=== PATIENT | female | born 1960 | race Caucasian/White ===

== ENCOUNTER → 2020-04-25 08:20 | Outpatient (CLI) | payer OTHER, SELFPAY ==
[2020-04-26 23:12] LABS: COVID19 Sendout Not Detected (Not Detect)
== END ==
PROVIDERS: Family Provider Nurse Practitioner Family; PCP Nurse Practitioner Family; Visit Provider Physician Assistant
DX: Z11.59 Encounter for screening for other viral diseases (principal)
CPT/HCPCS: 87635

== ENCOUNTER 2020-04-28 11:16 | Day surgery (SDC) | payer OTHER, SELFPAY ==
[2020-04-24 10:46] VITALS: BMI 55.8
[2020-04-28] VITALS (8 sets, daily range): BP systolic 143–182; BP diastolic 85–110; PULSE 85–104; RESP 12–24; TEMP 36–37.3; O2SAT 95–97; BMI 55.7
[2020-04-28] MEDS: LACTATED RINGERS 1,000 ML 100 ML IV (11:59)
--- NOTE | 2020-04-28 14:20 | PM.PREOP ---
Pre-operative Note COVID-19 COVID-19 status: Negative Result date/Date tested (Pos, Neg/Pending): 04/26/20 Interval Note History & Physical reviewed/Exam performed by Physician: Yes Changes to H&P: No
--- NOTE | 2020-04-28 14:29 | SUR.OPER ---
Supine on padded OR bed, head on pillow, arms padded and tucked at side, legs uncrossed, safety belt at thigh, tape over blanket over lower legs .
[2020-04-28] MEDS: CLINDAMYCIN 300 MG in DEXTROSE 5 % IN WATER 50 ML 104 ML IV (14:36)
[2020-04-28] MEDS: LIDOCAINE 1% 30 ML INJ (14:55)
--- NOTE | 2020-04-28 15:32 | P.OP_ITS ---
Operative Date/Time/Diagnoses Date of procedure: 04/28/20 Time of procedure: 15:32 Pre-op diagnosis: Bilateral headaches Post-op diagnosis: same Procedure & Clinicians Procedure: Examination under anesthesia. Attempted bilateral temporal artery biopsy. Abandoned when the artery could not be located either palpably or with Doppler. Same procedure as scheduled: No (Unable to complete the operation planned.) Indications: Headaches. Patient has been taking high-dose steroids. Surgeon: Vinicio Tucker Click Yes if Unassisted: Yes Anesthesia Type: General Operative Notes Findings: Unable to locate the arteries either palpably or with a Doppler despite raising the blood pressure to facilitate finding. See details below. Closure Type: not applicable Specimen(s): none sent Prosthetic devices, grafts, tissues, transplants, or devices: None Estimated Blood Loss (mL): 0 Procedure in detail: Patient was placed supine on the operating room table and underwent general LMA anesthesia. She was prepped on the right side after cl ipping some hair and draped. Could not palpate the artery but I obtained a Doppler and carefully examined for it we raised the patient's blood pressure in order to facilitate finding it and even at a pressure systolic of 150 I could not locate an arterial signal. I could not locate any signal actually. We switched probes to see if that was the problem and again could not hear anything. We tested it on someone after prepping there arm and it was clear that the probe was working and produced an audible arterial signal. I once again searched the right side and I was unable to find any arterial signal anywhere in the area of the temporal artery. The procedure was abandoned of this side. I prepped the left side and in a similar fashion examined for the artery. This time I found an arterial pulse but was actually too low to be the temporal artery. It was 8 point location of an arterial signal in it had no signal leading away from it. It was located down you the attachments of the e ar. After searching in vein on this left side for considerable. I abandoned the procedure. The patient was awakened extubated taken recovery room in good condition. Complications: none Post-operative Condition: stable Disposition: PACU Plan for aftercare: No follow-up planned
--- NOTE | 2020-04-28 15:40 | SUR.PHASEI ---
assumed care. Pt sleeping. BP elevated, close to her admission baseline. Inital CUTTER OPERATOR reports that patient will need to follow up with PCP.
--- NOTE | 2020-04-28 15:52 | SUR.PHASEI ---
HOB elevated, drinking water. will come speak to her regarding outcome. Denies nausea.
--- NOTE | 2020-04-28 16:12 | SUR.PHASEII ---
Informed MD that pt has a headache and he ordered her some oxycodone.
[2020-04-28] MEDS: OXYCODONE IR 5 MG TABLET 10 MG PO (16:16)
--- NOTE | 2020-04-28 16:26 | SUR.PHASEII ---
pt's surgery was cancelled . Dr. Oleary came and talked to pt and to pt's . Pt states her headache is better.
== END 2020-04-28 16:34 | disposition home or self-care (01) ==
PROVIDERS: Family Provider Nurse Practitioner Family; Referring Provider Specialist; Visit Provider Specialist
PROC: (CPT 37609; principal; 2020-04-28 12:45)
DX: R51 Headache (principal); J45.909 Unspecified asthma, uncomplicated; Z53.09 Procedure and treatment not carried out because of other contraindication
CPT/HCPCS: 37609; J1100; J2250; J2405; J2704; J3010; S0077

== ENCOUNTER 2020-07-10 16:27 | Observation (INO) | payer OTHER, SELFPAY ==
[2020-07-10] VITALS (13 sets, daily range): BP systolic 126–194; BP diastolic 53–99; PULSE 79–95; RESP 13–24; TEMP 36.1–36.7; O2SAT 94–99; BMI 56.5
--- NOTE | 2020-07-10 16:30 | PC.NURSE ---
at time of triage attempt to get EKG on patient in hallway due to no bed available in department. Pt states she is supposed to have one later and does not want one at this time. I told patient we should get one due to her complaint of shortness of breath with pain upon inspiration. Pt refuses EKG at this time and states she will wait for a room. Charge Nurse notified.
--- NOTE | 2020-07-10 17:36 | DI.RAD.S_ITS ---
PROCEDURE: XR CHEST 1V INDICATIONS: Shortness of breath TECHNIQUE: One view of the chest was acquired. COMPARISON: None. FINDINGS: Surgical changes and devices: None. Lungs and pleura: There is pulmonary vascular prominence suggestive of mild edema. No focal consolidation. No pleural effusions or pneumothorax. Mediastinum: Mediastinal contours appear normal. Heart size is normal. Bones and chest wall: No suspicious bony lesions. Overlying soft tissues appear unremarkable. IMPRESSION: 1. Pulmonary vascular prominence suggestive of mild edema. Dictated by: Dutch Patterson M.D. on 07/10/2020 at 17:21 Approved by: Dutch Patterson M.D. on 07/10/2020 at 17:23
--- NOTE | 2020-07-10 18:47 | ED_ITS ---
HPI - Chest Pain General Chief Complaint: Shortness of Breath/Dyspnea Stated Complaint: SOB, cough Time Seen by Provider: 07/10/20 17:35 Source: patient Mode of arrival: Ambulatory Limitations: no limitations History of Present Illness HPI narrative: Patient complains ongoing exertional chest pain dyspnea for the past 3 weeks. Not improving with multiple courses of steroids. Has exertional chest pressure. Very dyspneic on short walks. Has been gaining weight as well. Strong family history coronary disease. Does not smoke. History of hypercholesteremia. Never had a stress test before was referred by [facility] provider for Holter monitor tomorrow. 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 Feels like a brick on her chest when chest tightness occurs. No chest pain at this time. Related Data Home Medications Medication Instructions Recorded Confirmed albuterol sulfate 90 mcg/actuation 2 puff INHALATION Q6H PRN 04/23/20 07/10/20 aerosol inhaler diphenhydramine HCl 25 mg capsule 75 mg PO BEDTIME 04/23/20 07/10/20 mirtazapine 15 mg tablet 30 mg PO DAILY 04/23/20 07/10/20 omeprazole 20 mg capsule,delayed 40 mg PO DAILY 04/23/20 07/10/20 release gabapentin 200 mg PO TID 07/10/20 07/10/20 levothyroxine 200 mcg PO DAILY 07/10/20 07/10/20 Allergies Allergy/AdvReac Type Severity Reaction Status Date / Time acetaminophen [ACETAMINOPHEN] Allergy Intermediate RASH Verified 07/10/20 16:35 nitrofurantoin Allergy Intermediate RASH Verified 07/10/20 16:35 [From MACROBID] Penicillins [PENICILLINS] Allergy Intermediate RASH Verified 07/10/20 16:35 phenylpropanolamine Allergy Intermediate RASH/STOMACH Verified 07/10/20 16:35 [From TETRA] ACHE sulfamethoxazole Allergy Intermediate RASH/STOMACH Verified 07/10/20 16:35 [From SEPTRA] CRAMPS trimethoprim [From SEPTRA] Allergy Intermediate RASH/STOMACH Verified 07/10/20 16:35 CRAMPS Review of Systems Review of Systems Narrative: GENERAL: Denies chills, fatigue, malaise, fever, sweats. HEENT: Denies sinus pain, ear pain, sore throat, difficulty swallowing, dizziness. RESPIRATORY: Complains dyspnea, cough, wheezing, denies hemoptysis, sputum. CARDIOVASCULAR: Complains chest pain, palpitations, complains of orthopnea, edema, GASTROINTESTINAL: Denies nausea, vomiting, abdominal pain, diarrhea, constipation, melena. : Denies dysuria, frequency, incontinence, hematuria, urinary retention. MUSCULOSKELETAL: denies weakness, joint pain, or bony pain SKIN: Denies rash, skin lesions NEUROLOGIC: Denies weakness, headache, numbness, change in speech, confusion, seizures, incoordination. PSYCHIATRIC: No concerning psychosocial issues. ROS Unobtainable: All systems reviewed & are unremarkable except as noted in HPI and below Patient History Medical History Asthma (Acute) Chronic fatigue (Acute) Depression (Acute) Fibromyalgia (Acute) Hypothyroid (Acute) Surgical History Status post cholecystectomy (Acute) Family History Father Heart disease Social History marital status: household members: spouse Smoking Status: Never smoker alcohol intake: never Smoking Status: Never smoker Substance Use Type: does not use Exam Narrative Exam Narrative: GENERAL: patient appears stated age. Well-nourished, well- developed patient, in no distress, not toxic HEAD: Atraumatic. Normocephalic. EYES: Pupils equal round and reactive. Extraocular motions intact. No scleral icterus. No injection or drainage. ENT: Nose without bleeding, purulent drainage. Throat without erythema, tonsillar hypertrophy or exudate. Airway patent. NECK: Trachea midline. Non tender CARDIOVASCULAR: Regular rate and rhythm without murmurs, gallops, or rubs. RESPIRATORY: Clear to auscultation. Breath sounds equal bilaterally. Mild bilateral wheezes, no rales, or rhonchi. GASTROINTESTINAL: Abdomen soft, non-tender, nondistended. EXTREMITIES: 2+ pedal edema no joint tenderness. BACK: Nontender without deformity or crepitance. No flank tenderness. NEURO: AOx4. SKIN: No rash or erythema of visible areas PSYCH: Not anxious, is cooperative Initial Vital Signs Initial Vital Signs: Vital Signs Temperature 98.1 F 07/10/20 16:35 Pulse Rate 85 07/10/20 16:35 Respiratory Rate 24 07/10/20 16:35 Blood Pressure 194/77 H 07/10/20 16:35 Pulse Oximetry 97 07/10/20 16:35 Course Course Course Narrative: [place] better after nebulizer treatment. Currently no chest pain Decision to Admit Date: 07/10/20 Decision to Admit time: 21:25 Orders Ordered: ED Orders 07/10/20 17:36 XR chest 1V Stat EKG-12 Lead Stat 07/10/20 18:46 Complete Blood Count AUTO DIFF Stat Comprehensive Metabolic Panel Stat NT-proBNP (BNP-Adult 18+) Stat Troponin & CK Cardiac Panel Stat 07/10/20 19:20 COVID19 -ED/INPAT/OR/L&D Stat Albuterol (Ventolin Hfa (Vent/Covid R/O)) 2 puff INH RTQ2HR PRN PRN Reason: Shortness Of Breath Or Wheezing Albuterol/Ipratropium (Combivent Respimat) 2 puff INH RTQ6HR PRN PRN Reason: Shortness Of Breath Or Wheezing Aspirin (Aspirin Ec) 81 mg PO DAILY [facility] Bisacodyl (Dulcolax) 10 mg GA DAILY PRN PRN Reason: Constipation Docusate Sodium (Colace) 100 mg PO BID PRN PRN Reason: Constipation Enoxaparin Sodium (Lovenox) 40 mg SUBCUT DAILY [facility] Gabapentin (Neurontin) 200 mg PO TID [facility] Last Admin: 07/11/20 00:32 Dose: 200 mg Documented by: IRASEMA Ibuprofen (Advil) 600 mg PO Q6HR PRN PRN Reason: Fever/Mild Pain (1-3) Levothyroxine Sodium (Synthroid) 200 mcg PO DAILY [facility] Mirtazapine (Remeron) 30 mg PO DAILY [facility] Morphine Sulfate (Morphine) 2 mg IV Q5MIN PRN PRN Reason: Chest Pain Naloxone HCl (Narcan) 0.2 mg IV Q2MIN PRN PRN Reason: Opiate Reversal Naloxone HCl (Narcan) 0.2 mg IV Q2MIN PRN PRN Reason: Opiate Reversal Nitroglycerin (Nitrostat) 0.4 mg SL [id number] PRN PRN Reason: Chest Pain Ondansetron HCl (Zofran) 4 mg IV Q8HR PRN PRN Reason: Nausea And Vomiting Discontinued Medications Albuterol (Ventolin) 2.5 mg INH NOW ONE Stop: 07/10/20 20:50 Last Admin: 07/10/20 21:05 Dose: 2.5 mg Documented by: KASEY Albuterol (Ventolin Hfa (Vent/Covid R/O)) 2 puff INH RTQ4HR PRN PRN Reason: Shortness Of Breath Or Wheezing Aspirin (Aspirin Chew) 324 mg PO NOW ONE Stop: 07/10/20 18:47 Last Admin: 07/10/20 18:51 Dose: 324 mg Documented by: ANNMARIE Methylprednisolone (Solu-Medrol 125 Mg Vial) 125 mg IV NOW ONE Stop: 07/11/20 00:32 Reevaluation(s) Reevaluation #1: Improved lung sounds after nebulizing treatment. No chest pain Time: 21:25 Consultations Consultation #1: Spoke with Dr. Blanc, cardiology. Appropriate for admission here for stress test in the morning Time: 20:13 Consultation #2: Spoke with hospitalistEbenezer, [facility] Time: 21:26 Vital Signs Vital signs: Vital Signs - 8 hr 07/10/20 17:26 07/10/20 17:30 07/10/20 18:00 Pulse Rate 95 H 84 79 Respiratory Rate 16 13 Blood Pressure 126/53 L 144/80 H 176/97 H Pulse Oximetry 97 97 97 07/10/20 18:30 07/10/20 19:00 07/10/20 19:30 Pulse Rate 79 81 81 Respiratory Rate 23 17 17 Blood Pressure 148/83 H 187/99 H 156/93 H Pulse Oximetry 94 98 95 07/10/20 20:00 07/10/20 20:09 07/10/20 21:06 Pulse Rate 80 86 81 Respiratory Rate 17 20 17 Blood Pressure 144/80 H 152/84 H Pulse Oximetry 95 96 95 MDM - Chest Pain Differential Diagnosis Differential diagnosis: Likely unstable angina pectoris, atypical chest pain, chest pain and other (CHF/asthma) Lab Data Attestation: I reviewed the patient's lab results. Result diagrams: 07/10/20 18:46 07/10/20 18:46 Labs: Lab Results 07/10/20 07/10/20 07/10/20 Range/Units 18:46 18:46 18:48 WBC 7.3 (4.5-11.0) X10^3/uL RBC 4.57 (4.0-5.2) X10^6/uL Hgb 11.5 L (12.0-16.0) g/dL Hct 36.5 (36-46) % MCV 79.9 L (80-100) fL MCH 25.3 L (26-34) PG MCHC 31.7 (30-36) % RDW 16.2 H (11.6-14.8) % Plt Count 361 (150-400) X10^3/uL Neut % (Auto) 56.6 (50-75) % Lymph % (Auto) 28.8 (25-40) % [place] % (Auto) 8.6 (3-14) % Eos % (Auto) 4.8 H (2-4) % Baso % (Auto) 1.2 (0-2) % Neut # (Auto) 4100 (3748-8500) /uL Lymph # (Auto) 2100 (2108-7057) /uL [place] # (Auto) 600 (0-900) /uL Eos # (Auto) 300 (0-450) /uL Baso # (Auto) 100 (0-100) /uL Sodium 139 (137-145) mmol/L Potassium 3.8 (3.4-5.1) mmol/L Chloride 103 (98-107) mmol/L Carbon Dioxide 29 (22-32) mmol/L BUN 6 L (7-17) mg/dL Creatinine 0.61 (0.52-1.04) mg/dL Estimated GFR > 60.0 (>60) mL/min BUN/Creatinine Ratio 9.8 (6-22) Glucose 119 H (70-100) mg/dL Calcium 9.4 (8.4-10.2) mg/dL Magnesium 1.9 (1.6-2.3) mg/dL Total Bilirubin 0.5 (0.2-1.3) mg/dL AST 68 H (14-36) IU/L ALT 47 H (<35) IU/L Alkaline Phosphatase 154 H (38-126) U/L Total Creatine Kinase 34 (30-135) U/L CK-MB (CK-2) TNP CK-MB (CK-2) Rel Index TNP Troponin I < 0.012 (0.01-0.034) ng/mL NT-Pro-B Natriuret Pep 311 H (<125) pg/mL Total Protein 7.5 (6.3-8.2) g/dL Albumin 3.9 (3.5-5.0) g/dL Globulin 3.6 (1.7-4.1) g/dL Albumin/Globulin Ratio 1.1 (1.0-2.8) COVID-19 PCR (Negative) 07/10/20 Range/Units 19:20 WBC (4.5-11.0) X10^3/uL RBC (4.0-5.2) X10^6/uL Hgb (12.0-16.0) g/dL Hct (36-46) % MCV (80-100) fL MCH (26-34) PG MCHC (30-36) % RDW (11.6-14.8) % Plt Count (150-400) X10^3/uL Neut % (Auto) (50-75) % Lymph % (Auto) (25-40) % [place] % (Auto) (3-14) % Eos % (Auto) (2-4) % Baso % (Auto) (0-2) % Neut # (Auto) (8807-5903) /uL Lymph # (Auto) (5189-6035) /uL [place] # (Auto) (0-900) /uL Eos # (Auto) (0-450) /uL Baso # (Auto) (0-100) /uL Sodium (137-145) mmol/L Potassium (3.4-5.1) mmol/L Chloride (98-107) mmol/L Carbon Dioxide (22-32) mmol/L BUN (7-17) mg/dL Creatinine (0.52-1.04) mg/dL Estimated GFR (>60) mL/min BUN/Creatinine Ratio (6-22) Glucose (70-100) mg/dL Calcium (8.4-10.2) mg/dL Magnesium (1.6-2.3) mg/dL Total Bilirubin (0.2-1.3) mg/dL AST (14-36) IU/L ALT (<35) IU/L Alkaline Phosphatase (38-126) U/L Total Creatine Kinase (30-135) U/L CK-MB (CK-2) CK-MB (CK-2) Rel Index Troponin I (0.01-0.034) ng/mL NT-Pro-B Natriuret Pep (<125) pg/mL Total Protein (6.3-8.2) g/dL Albumin (3.5-5.0) g/dL Globulin (1.7-4.1) g/dL Albumin/Globulin Ratio (1.0-2.8) COVID-19 PCR Negative (Negative) Imaging Data Chest x-ray: Radiologist's Impression: [address] [address] XRay Report Signed Patient: Maine Avila EMR#: [id number] : 1Acct:[id number] Age/Sex: 60 / FDate of Service: 07/10/20 Loc: ED Accession Number: [id number] Procedure: XR chest 1V Ordering Provider: Kash Mcgrath D.O. PROCEDURE: XR CHEST 1V INDICATIONS: Shortness of breath TECHNIQUE: One view of the chest was acquired. COMPARISON: None. FINDINGS: Surgical changes and devices: None. Lungs and pleura: There is pulmonary vascular prominence suggestive of mild edema. No focal consolidation. No pleural effusions or pneumothorax. Mediastinum: Mediastinal contours appear normal. Heart size is normal. Bones and chest wall: No suspicious bony lesions. Overlying soft tissues appear unremarkable. IMPRESSION: 1. Pulmonary vascular prominence suggestive of mild edema. Dictated by: Dutch Patterson M.D. on 07/10/2020 at 17:21 Approved by: Dutch Patterson M.D. on 07/10/2020 at 17:23 ECG Data Attestation: I personally reviewed and interpreted this ECG as follows: Interpretation: EKG normal sinus rhythm, ventricular rate 81. No ST elevation. MDM Narrative Medical decision making narrative: Patient does have symptoms of asthma however with the exertional chest pain and heaviness in her chest is different from the past. Never had cardiac workup in the past. Family history of coronary disease early age. Appropriate for admission Discharge Plan Departure Patient Disposition: Admitted as Observation Clinical Impression: Chest pain Qualifiers: Chest pain type: unspecified Qualified Code(s): R07.9 - Chest pain, unspecified Discharge Date/Time: 07/10/20 21:46 Referrals: Taylor Lassiter [Primary Care Provider] - Admit Date/Time: 07/10/20 21:46 Admit Provider: Austin Leiva
[2020-07-10] MEDS: ASPIRIN 81 MG CHEW TAB 324 MG PO (18:51)
[2020-07-10 19:57] LABS: COVID19 -Nasal RAPID Negative (Negative)
[2020-07-10 20:52] LABS: Add Manual Diff / Slide Review NO; Basophils Absolute Auto 100 /uL (0-100); Basophils Percent Auto 1.2 % (0-2); Eosinophils Absolute Auto 300 /uL (0-450); Eosinophils Percent Auto 4.8 % (2-4); Hematocrit 36.5 % (36-46); Hemoglobin 11.5 g/dL (12.0-16.0); Lymphocytes Absolute Auto 2100 /uL (1100-4500); Lymphocytes Percent Auto 28.8 % (25-40); Mean Corpuscular HGB Conc 31.7 % (30-36); Mean Corpuscular Hemoglobin 25.3 PG (26-34); Mean Corpuscular Volume 79.9 fL (80-100); Monocytes Absolute Auto 600 /uL (0-900); Monocytes Percent Auto 8.6 % (3-14); Neutrophils Absolute Auto 4100 /uL (1500-7000); Neutrophils Percent Auto 56.6 % (50-75); Platelet Count 361 X10^3/uL (150-400); Red Blood Cell Count 4.57 X10^6/uL (4.0-5.2); Red Cell Distribution Width 16.2 % (11.6-14.8); White Blood Cell Count 7.3 X10^3/uL (4.5-11.0)
[2020-07-10 20:58] LABS: Alanine Aminotransferase 47 IU/L (<35); Albumin 3.9 g/dL (3.5-5.0); Albumin Globulin Ratio 1.1 (1.0-2.8); Alkaline Phosphatase 154 U/L (38-126); Aspartate Aminotransferase 68 IU/L (14-36); BUN Creatinine Ratio 9.8 (6-22); Bilirubin Total 0.5 mg/dL (0.2-1.3); Blood Urea Nitrogen 6 mg/dL (7-17); Calcium 9.4 mg/dL (8.4-10.2); Carbon Dioxide 29 mmol/L (22-32); Chloride 103 mmol/L (98-107); Creatine Kinase 34 U/L (30-135); Estimated Glomerular Filt Rate > 60.0 mL/min (>60); Globulin 3.6 g/dL (1.7-4.1); Glucose 119 mg/dL (70-100); HEMOLYSIS < 15 (0-50); Potassium 3.8 mmol/L (3.4-5.1); Sodium 139 mmol/L (137-145); Total Protein 7.5 g/dL (6.3-8.2)
[2020-07-10] MEDS: ALBUTEROL 2.5 MG/3 ML NEB (ADULT) INH (21:05)
[2020-07-10 21:10] LABS: NT-proBNP (BNP-Adult 18+) 311 pg/mL (<125); Troponin I < 0.012 ng/mL (0.01-0.034)
--- NOTE | 2020-07-10 22:28 | PC.ADMIT ---
[id number] Admission Note: The patient,Maine Avila,60 y/o, was given written information regarding hospital policies, unit procedures and contact persons. Patient's smoking status: Never smoker. Pt arrived from ED via stretcher. Ambulated from stretcher to bed. Steady on feet. Denies chest pain, pressure or SOB at time of arrival. Oriented to room and call system. Tele monitor placed on. Pt verbalized she will call for needs. Vital Signs - 8 hr 07/10/20 16:35 07/10/20 17:26 07/10/20 17:30 Temperature 98.1 F Pulse Rate 85 95 H 84 Respiratory Rate 24 16 Blood Pressure 194/77 H 126/53 L 144/80 H Pulse Oximetry 97 97 97 07/10/20 18:00 07/10/20 18:30 07/10/20 19:00 Temperature Pulse Rate 79 79 81 Respiratory Rate 13 23 17 Blood Pressure 176/97 H 148/83 H 187/99 H Pulse Oximetry 97 94 98 07/10/20 19:30 07/10/20 20:00 07/10/20 20:09 Temperature Pulse Rate 81 80 86 Respiratory Rate 17 17 20 Blood Pressure 156/93 H 144/80 H 152/84 H Pulse Oximetry 95 95 96 07/10/20 21:06 07/10/20 21:55 Temperature 97.8 F Pulse Rate 81 88 Respiratory Rate 17 16 Blood Pressure 167/93 H Pulse Oximetry 95 97
[2020-07-10 22:55] LABS: Magnesium 1.9 mg/dL (1.6-2.3)
[2020-07-10 23:16] LABS: INR 1.1 (0.9-1.3); Prothrombin Time 13.1 SECONDS (10.1-12.7)
[2020-07-10 23:25] LABS: PTT Partial Thromboplastin Tim 32 SECONDS (26.4-36.2)
[2020-07-10 23:32] LABS: Troponin I < 0.012 ng/mL (0.01-0.034)
[2020-07-11] MEDS: GABAPENTIN 100 MG CAPSULE 200 MG PO ×2 (00:32→08:30)
--- NOTE | 2020-07-11 01:22 | P.HP_ITS ---
History of Present Illness History of Present Illness Date Patient Seen: 07/10/20 Time Patient Seen: 23:35 Chief complaint: SOB, cough Narrative: Ms. Maine Avila is a 60-year-old female with a history significant for asthma, temporal headaches, fibromyalgia, hypothyroidism, hyperlipidemia and depression who presents to the ER with increased insert exertional dyspnea for 3 weeks. The patient further reports chest pressure with activity that is nonradiating without associated nausea or diaphoresis. The patient states she presents to the ER today because last night she could not sleep because she was so short of breath. The patient additional reports a weight gain of 50 lb with edema over the last 6 months but over the same time. She notes that she has been taking steroids. She states she has been diagnosed with asthma for many years however has had increase complications over the last several months with recurrent bouts of shortness of breath requiring repeat PT doses of steroid therapy an escalation of treatment. The patient denies complaints of fevers or chills but has had bitemporal headaches and has an appointment with a neurologist next month. She describes having very large sinuses causing her problems but denies complaints of sore throat. The chest pressure that described above was greatly relieved with nebulizer treatments in the ER and she reports an occasional brief palpitation. She denies complaints of epigastric or abdominal pain no nausea vomiting. She has had no change in bowel or bladder habits. She describes weight gain as noted above and leg swelling. Upon arrival to the ER the patient is afebrile with temperature 98.1?, heart rate 85, hypertensive 194/77 with respiratory rate of 24 saturating 97% on room air. A chest x-ray obtained which identifies mild pulmonary edema with a normal cardiac silhouette. Twelve lead EKG reveals sinus rhythm with ventricular rate of [address] changes, well septal infarct. On laboratory analysis she has a white count of 7.3, hemoglobin of 11.5 and hematocrit 36.5 with platelets a 161. Her electrolytes are all within normal limits she has a BUN of 6 and creatinine of 0.61. Her nonfasting glucose is 119. Her liver functions are within normal limits and she has troponin that is less than 0.012 and proBNP of 311. Her covered screening is negative. Cardiology is contacted and ER provider spoke with Dr. Blanc who felt the patient was appropriate for admit, trend troponins and stress test. The patient is admitted to the hospital for rule out ACS an asthma exacerbation. Patient History Medical History Asthma (Acute) Chronic fatigue (Acute) Depression (Acute) Fibromyalgia (Acute) Hypothyroid (Acute) Surgical History Status post cholecystectomy (Acute) Family & Social History Family History (Updated 07/11/20 @ 05:56 by PHYLLIS Dinh) Father Heart disease Mother Heart disease Social History: household members spouse Prior Living Arrangements House Safety & Behavioral: Feels Safe in Current Yes Environment Been Physically Hurt or No Threatened By a Person Suicidal Ideation Description None Tobacco & Substance use: Smoking Status Never smoker alcohol intake never Substance Use Type does not use Meds Home Medications and Allergies Home Medications Medication Instructions Recorded Confirmed Type albuterol sulfate 90 mcg/actuation 2 puff INHALATION Q6H PRN 04/23/20 07/10/20 History aerosol inhaler diphenhydramine HCl 25 mg capsule 75 mg PO BEDTIME 04/23/20 07/10/20 History mirtazapine 15 mg tablet 30 mg PO DAILY 04/23/20 07/10/20 History omeprazole 20 mg capsule,delayed 40 mg PO DAILY 04/23/20 07/10/20 History release gabapentin 200 mg PO TID 07/10/20 07/10/20 History levothyroxine 200 mcg PO DAILY 07/10/20 07/10/20 History Allergies Allergy/AdvReac Type Severity Reaction Status Date / Time acetaminophen [ACETAMINOPHEN] Allergy Intermediate RASH Verified 07/10/20 16:35 nitrofurantoin Allergy Intermediate RASH Verified 07/10/20 16:35 [From MACROBID] Penicillins [PENICILLINS] Allergy Intermediate RASH Verified 07/10/20 16:35 phenylpropanolamine Allergy Intermediate RASH/STOMACH Verified 07/10/20 16:35 [From TETRA] ACHE sulfamethoxazole Allergy Intermediate RASH/STOMACH Verified 07/10/20 16:35 [From SEPTRA] CRAMPS trimethoprim [From SEPTRA] Allergy Intermediate RASH/STOMACH Verified 07/10/20 16:35 CRAMPS Review of Systems Review of Systems ROS: Yes All systems reviewed with the patient and are negative except as otherwise documented Exam Vital Signs (past 8 hours): - 07/10/20 17:26 07/10/20 17:30 07/10/20 18:00 Temperature Pulse Rate 95 H 84 79 Respiratory Rate 16 13 Blood Pressure 126/53 L 144/80 H 176/97 H Pulse Oximetry 97 97 97 07/10/20 18:30 07/10/20 19:00 07/10/20 19:30 Temperature Pulse Rate 79 81 81 Respiratory Rate 23 17 17 Blood Pressure 148/83 H 187/99 H 156/93 H Pulse Oximetry 94 98 95 07/10/20 20:00 07/10/20 20:09 07/10/20 21:06 Temperature Pulse Rate 80 86 81 Respiratory Rate 17 20 17 Blood Pressure 144/80 H 152/84 H Pulse Oximetry 95 96 95 07/10/20 21:55 07/10/20 23:02 07/10/20 23:57 Temperature 97.8 F 97.0 F L Pulse Rate 88 88 86 Respiratory Rate 16 16 20 Blood Pressure 167/93 H 145/81 H Pulse Oximetry 97 97 99 Oxygen Delivery Method Room Air Oxygen Flow Rate 0 Narrative Exam Narrative: GENERAL APPEARANCE: well developed, super morbid obesity with a BMI of 56.5, in no acute distress. HEENT: Normocephalic, PERRLA, conjunctiva clear, EOMs intact without nystagmus, no sinus tenderness to percussion, no rhinorrhea, mucous membranes are moist and pink without lesions or exudate. NECK/THYROID: neck supple, no JVD, no thyromegaly, trachea midline. LYMPH NODES: no cervical or supraclavicular lymphadenopathy. SKIN: [place], warm and dry, no visible rashes HEART: regular rate and rhythm, heart sounds are distant, S1-S2, no murmur, no rubs or gallops, brisk capillary refill, trace pretibial edema LUNGS: Clear but diminished breath sounds, no audible coarseness crackles or wheezing, dry nonproductive cough with deep inspiration. CHEST: Symmetrical movement, no accessory muscle use, good tidal volume. ABDOMEN: Soft, protuberant/obese, dull to percussion, no abdominal tenderness, no guarding or peritoneal signs, no organomegaly exam limited by body habitus no flank or suprapubic tenderness, active bowel tones. BACK: Normal curvature, nontender to palpation EXTREMITIES: moves all extremities, strength is 5/5 and symmetrical, no deformities or joint effusions. NEUROLOGIC: AAO x4, no focal neurologic deficits, cranial nerves II-XII grossly intact, sensation intact to light touch, hearing grossly normal to speech. PSYCH: Anxious, Fair eye contact, short answers to questions, cooperative Objective Labs Result Diagrams: 07/10/20 18:46 07/10/20 18:46 Labs: Laboratory Results - last 24 hr 07/10/20 07/10/20 07/10/20 18:46 18:46 18:48 WBC 7.3 RBC 4.57 Hgb 11.5 L Hct 36.5 MCV 79.9 L MCH 25.3 L MCHC 31.7 RDW 16.2 H Plt Count 361 Neut % (Auto) 56.6 Lymph % (Auto) 28.8 [place] % (Auto) 8.6 Eos % (Auto) 4.8 H Baso % (Auto) 1.2 Neut # (Auto) 4100 Lymph # (Auto) 2100 [place] # (Auto) 600 Eos # (Auto) 300 Baso # (Auto) 100 PT INR APTT Sodium 139 Potassium 3.8 Chloride 103 Carbon Dioxide 29 BUN 6 L Creatinine 0.61 Estimated GFR > 60.0 BUN/Creatinine Ratio 9.8 Glucose 119 H Calcium 9.4 Magnesium 1.9 Total Bilirubin 0.5 AST 68 H ALT 47 H Alkaline Phosphatase 154 H Total Creatine Kinase 34 CK-MB (CK-2) TNP CK-MB (CK-2) Rel Index TNP Troponin I < 0.012 NT-Pro-B Natriuret Pep 311 H Total Protein 7.5 Albumin 3.9 Globulin 3.6 Albumin/Globulin Ratio 1.1 COVID-19 PCR 07/10/20 07/10/20 07/10/20 19:20 23:00 23:00 WBC RBC Hgb Hct MCV MCH MCHC RDW Plt Count Neut % (Auto) Lymph % (Auto) [place] % (Auto) Eos % (Auto) Baso % (Auto) Neut # (Auto) Lymph # (Auto) [place] # (Auto) Eos # (Auto) Baso # (Auto) PT INR APTT 32 Sodium Potassium Chloride Carbon Dioxide BUN Creatinine Estimated GFR BUN/Creatinine Ratio Glucose Calcium Magnesium Total Bilirubin AST ALT Alkaline Phosphatase Total Creatine Kinase CK-MB (CK-2) CK-MB (CK-2) Rel Index Troponin I < 0.012 NT-Pro-B Natriuret Pep Total Protein Albumin Globulin Albumin/Globulin Ratio COVID-19 PCR Negative 07/10/20 23:00 WBC RBC Hgb Hct MCV MCH MCHC RDW Plt Count Neut % (Auto) Lymph % (Auto) [place] % (Auto) Eos % (Auto) Baso % (Auto) Neut # (Auto) Lymph # (Auto) [place] # (Auto) Eos # (Auto) Baso # (Auto) PT 13.1 H INR 1.1 APTT Sodium Potassium Chloride Carbon Dioxide BUN Creatinine Estimated GFR BUN/Creatinine Ratio Glucose Calcium Magnesium Total Bilirubin AST ALT Alkaline Phosphatase Total Creatine Kinase CK-MB (CK-2) CK-MB (CK-2) Rel Index Troponin I NT-Pro-B Natriuret Pep Total Protein Albumin Globulin Albumin/Globulin Ratio COVID-19 PCR Assessment & Plan Assessment & Plan narrative: This is a 60-year-old patient presents to the ER with increasing exertional dyspnea for 3 weeks having undergone multiple rounds of steroids the last being a 5 day course starting 06/30/2020. Patient reports weight gain and edema not in evidence on exam and chest tightness improved with nebulizer treatment. 1. Chest pressure, related to asthma, chronic, active. -the patient's chest pressure is not thought to be cardiac related to the patient does have risk factors of it positive family history with her father passing away at 59 from [place], hyperlipidemia and super morbid obesity. -patient's symptoms improved with nebulizer treatment and improved ventilation. Symptoms likely multifactorial related to asthma and anxiety. -white count is normal with increased eosinophils at 4.5%, troponin is negative at less than 0.012, proBNP is 311. Trace pedal edema independent extremities. -orders methylprednisolone 125 mg IV x1. -requested respiratory to consult evaluate and treat. -ordered albuterol 2 puffs every 2 hours as needed for shortness of breath or wheezing. -order albuterol/ipratropium 2 puffs every 6 hours as needed for shortness of breath or wheezing. -ordered peak flow. 2. Depression, chronic, stable. -likely depression with anxiety. Patient states she has become more anxious as she reaches her father's age at which she from heart attack. -continue patient's mirtazapine 30 mg daily. 3. Hypothyroidism, chronic, stable -continue patient's levothyroxine 200 mcg daily. 4. Fibromyalgia, chronic, stable. -the patient reports fibromyalgia symptoms are worse in the meredith months. -continue gabapentin 200 mg 3 times daily. 5. GERD, chronic, stable -patient takes omeprazole 40 mg daily at home, ordered Protonix 40 mg daily. VTE prophylaxis: Bilateral SCDs, enoxaparin IV fluid: Saline lock Diet: Heart healthy low-sodium Code status: Full code patient designates her years surrogate decision maker. The patient is admitted to the hospital due to the severity or since Tums and further management and monitoring. The patient is admitted as observation with expected length of stay to be less than 2 midnights. COVID-19 COVID-19 status: Negative Result date/Date tested (Pos, Neg/Pending): 07/10/20 Scores GCS [place] coma scale eye opening: Spontaneous [place] coma scale verbal response: Orientated [place] coma scale motor response: Obey commands Satya coma scale total score: 15
[2020-07-11 03:23] VITALS: BP 129/89; PULSE 85; RESP 20; TEMP 36.3; O2SAT 98
[2020-07-11 05:57] LABS: BUN Creatinine Ratio 14.3 (6-22); Blood Urea Nitrogen 10 mg/dL (7-17); Calcium 9.1 mg/dL (8.4-10.2); Carbon Dioxide 27 mmol/L (22-32); Chloride 104 mmol/L (98-107); Cholesterol 162 mg/dL (140-199); Estimated Glomerular Filt Rate > 60.0 mL/min (>60); Glucose 140 mg/dL (70-100); HDL Cholesterol 24 mg/dL (40-60); HEMOLYSIS < 15 (0-50); LDL Cholesterol Calculated 95 mg/dL (<100); Potassium 4.1 mmol/L (3.4-5.1); Sodium 139 mmol/L (137-145); Triglycerides 216 mg/dL (35-150)
[2020-07-11 07:25] VITALS: BP 136/92; PULSE 79; RESP 16; TEMP 36.3; O2SAT 94
--- NOTE | 2020-07-11 07:38 | PC.NURSE ---
Patient not in [facility], coordinator aware. Medication missed and it was not in night pharmacy. Day RN aware and night and day provider aware. Pharmacy in house will get med for , and get patient put into [facility].
[2020-07-11] MEDS: ENOXAPARIN 40 MG/0.4 ML SYRINGE SUBCUT (08:29)
[2020-07-11] MEDS: ASPIRIN EC 81 MG TABLET PO (08:30)
[2020-07-11] MEDS: PANTOPRAZOLE 40 MG VIAL IV (08:30)
[2020-07-11] MEDS: methylPREDNISolone 125 MG/2 ML VIAL IV (08:30)
[2020-07-11] MEDS: LEVOTHYROXINE 100 MCG TABLET 200 MCG PO (08:30)
--- NOTE | 2020-07-11 09:34 | DI.CT.S_ITS ---
PROCEDURE: CT ANGIO CHEST PE PROTOCOL INDICATIONS: multiple asthma exacerbations, r/o PE, ?ILD TECHNIQUE: After the administration of intravenous contrast, 2 mm thick sections acquired from the pulmonary apices to the posterior costophrenic angles. 3-dimensional maximum intensity projection (MIP) coronal and sagittal reformats were then acquired through the thorax. For radiation dose reduction, the following was used: automated exposure control, adjustment of mA and/or kV according to patient size. COMPARISON: None. FINDINGS: Image quality: Excellent. Pulmonary arteries: Pulmonary arteries are normal in size, and demonstrate no intraluminal filling defects to suggest central pulmonary embolism. Lungs and pleura: Lungs are edematous to a [id number] degree. No pleural effusions or pneumothorax. Central and peripheral airways are patent. Mediastinum: Heart size is at the upper limits of normal, without pericardial effusion. No mediastinal or hilar adenopathy. Thoracic aorta is normal in caliber and enhancement. Esophagus is normal in caliber, without hiatal hernia. Bones and chest wall: No suspicious bony lesions. Ribs and thoracic spine appear intact throughout. Thyroid gland appears normal where well seen. No axillary or supraclavicular adenopathy. Abdomen: Visualized upper abdominal solid organs appear normal in the early arterial phase of enhancement except that the liver where diffuse fatty infiltration appears present. IMPRESSION: Generalized mild to moderate pulmonary edema, heart size at the upper limits of normal. It is unclear whether of a generalized pattern of mild alveolitis explains this appearance versus atypical pneumonia or even cardiogenic pulmonary edema. No focal pneumonia found. Fatty infiltration prominent through the liver. Dictated by: Cali Duncan M.D. on 07/11/2020 at 11:58 Approved by: Cali Duncan M.D. on 07/11/2020 at 12:01
[2020-07-11 11:30] VITALS: BP 130/75; PULSE 85; RESP 16; TEMP 36.1; O2SAT 93
--- NOTE | 2020-07-11 12:14 | P.DS_ITS ---
History of Present Illness History of Present Illness Date Patient Seen: 07/11/20 Time Patient Seen: 12:14 Chief complaint: SOB, cough Narrative: As per PHYLLIS Dinh: Ms. Maine Avila is a 60-year-old female with a history significant for asthma, temporal headaches, fibromyalgia, hypothyroidism, hyperlipidemia and depression who presents to the ER with increased insert exertional dyspnea for 3 weeks. The patient further reports chest pressure with activity that is nonradiating without associated nausea or diaphoresis. The patient states she presents to the ER today because last night she could not sleep because she was so short of breath. The patient additional reports a weight gain of 50 lb with edema over the last 6 months but over the same time. She notes that she has been taking steroids. She states she has been diagnosed with asthma for many years however has had increase complications over the last several months with recurrent bouts of shortness of breath requiring repeat PT doses of steroid therapy an escalation of treatment. The patient denies complaints of fevers or chills but has had bitemporal headaches and has an appointment with a neurologist next month. She describes having very large sinuses causing her problems but denies complaints of sore throat. The chest pressure that described above was greatly relieved with nebulizer treatments in the ER and she reports an occasional brief palpitation. She denies complaints of epigastric or abdominal pain no nausea vomiting. She has had no change in bowel or bladder habits. She describes weight gain as noted above and leg swelling. Upon arrival to the ER the patient is afebrile with temperature 98.1?, heart rate 85, hypertensive 194/77 with respiratory rate of 24 saturating 97% on room air. A chest x-ray obtained which identifies mild pulmonary edema with a normal cardiac silhouette. Twelve lead EKG reveals sinus rhythm with ventricular rate of [address] changes, well septal infarct. On laboratory analysis she has a white count of 7.3, hemoglobin of 11.5 and hematocrit 36.5 with platelets a 161. Her electrolytes are all within normal limits she has a BUN of 6 and creatinine of 0.61. Her nonfasting glucose is 119. Her liver functions are within normal limits and she has troponin that is less than 0.012 and proBNP of 311. Her covered screening is negative. Cardiology is contacted and ER provider spoke with Dr. Blanc who felt the patient was appropriate for admit, trend troponins and stress test. The patient is admitted to the hospital for rule out ACS an asthma exacerbation. Discharge Providers Provider Date of admission: 07/10/20 21:46 Discharge Date: 07/11/20 Primary care physician: Taylor Lassiter Consults: 07/10/20 22:32 Consult to Dietitian, Adult Routine Comment: Reason For Exam: Super morbid obesity 07/10/20 22:33 Consult to Discharge Planning Routine Comment: Consult to Physical Therapy Evaluate & Treat Comment: Physician Instructions: Evaluate and Treat 07/10/20 22:50 Consult to Respiratory Therapy Evaluate & Treat Comment: Asthma Physician Instructions: Evaluate and treat Discharge provider: Austin Martines DO Summary Hospital Course Discharge Diagnosis: 1. Shortness of breath, chronic, active. 2. Depression, chronic, stable. 3. Hypothyroidism, chronic, stable 4. Fibromyalgia, chronic, stable. 5. GERD, chronic, stable Hospital Course: This is a 60-year-old patient presents to the ER with increasing exertional dyspnea for 3 weeks having undergone multiple rounds of steroids the last being a 5 day course starting 06/30/2020. Patient reports weight gain and edema not in evidence on exam and chest tightness improved with nebulizer treatment. Patient improved with steroid therapy and nebulizer therapy however further evaluation for PE was performed. CTA did not reveal PE but did show pulmonary edema. Her symptoms had improved at that point, however, and patient was not requiring supplemental oxygen at that time. She was discharged on a daily control inhaler which she had not previously been started on and given she was mildly hypertensive she was started on furosemide which she may not need to continue as an outpatient. Volume overload may be related to recent frequent use of steroids however do recommend echocardiogram as an outpatient. Based on admission HEART score is between 2-3 which no further inpatient evaluation is recommended. Exam Vital Signs (past 8 hours): - 07/11/20 07:25 Temperature 97.3 F L Pulse Rate 79 Respiratory Rate 16 Blood Pressure 136/92 H Pulse Oximetry 94 Oxygen Delivery Method Room Air Oxygen Flow Rate 0 Narrative Exam Narrative: GENERAL APPEARANCE: well developed, super morbid obesity with a BMI of 56.5, in no acute distress. HEENT: Normocephalic, PERRLA, conjunctiva clear, EOMs intact without nystagmus, no sinus tenderness to percussion, no rhinorrhea, mucous membranes are moist and pink without lesions or exudate. NECK/THYROID: neck supple, no JVD, no thyromegaly, trachea midline. LYMPH NODES: no cervical or supraclavicular lymphadenopathy. SKIN: [place], warm and dry, no visible rashes HEART: regular rate and rhythm, heart sounds are distant, S1-S2, no murmur, no rubs or gallops, brisk capillary refill, no edema LUNGS: Clear but diminished breath sounds, no audible coarseness crackles or wheezing, dry nonproductive cough with deep inspiration. CHEST: Symmetrical movement, no accessory muscle use, good tidal volume. ABDOMEN: Soft, protuberant/obese, dull to percussion, no abdominal tenderness, no guarding or peritoneal signs, no organomegaly exam limited by body habitus no flank or suprapubic tenderness, active bowel tones. BACK: Normal curvature, nontender to palpation EXTREMITIES: moves all extremities, strength is 5/5 and symmetrical, no d eformities or joint effusions. Mild pedal edema. NEUROLOGIC: AAO x4, no focal neurologic deficits, cranial nerves II-XII grossly intact, sensation intact to light touch, hearing grossly normal to speech. PSYCH: Anxious, Fair eye contact, short answers to questions, cooperative Objective Labs Result Diagrams: 07/10/20 18:46 07/11/20 05:18 Labs: Laboratory Results - last 24 hr 07/10/20 07/10/20 07/10/20 18:46 18:46 18:48 WBC 7.3 RBC 4.57 Hgb 11.5 L Hct 36.5 MCV 79.9 L MCH 25.3 L MCHC 31.7 RDW 16.2 H Plt Count 361 Neut % (Auto) 56.6 Lymph % (Auto) 28.8 [place] % (Auto) 8.6 Eos % (Auto) 4.8 H Baso % (Auto) 1.2 Neut # (Auto) 4100 Lymph # (Auto) 2100 [place] # (Auto) 600 Eos # (Auto) 300 Baso # (Auto) 100 PT INR APTT Sodium 139 Potassium 3.8 Chloride 103 Carbon Dioxide 29 BUN 6 L Creatinine 0.61 Estimated GFR > 60.0 BUN/Creatinine Ratio 9.8 Glucose 119 H Calcium 9.4 Magnesium 1.9 Total Bilirubin 0.5 AST 68 H ALT 47 H Alkaline Phosphatase 154 H Total Creatine Kinase 34 CK-MB (CK-2) TNP CK-MB (CK-2) Rel Index TNP Troponin I < 0.012 NT-Pro-B Natriuret Pep 311 H Total Protein 7.5 Albumin 3.9 Globulin 3.6 Albumin/Globulin Ratio 1.1 Triglycerides Cholesterol LDL Cholesterol, Calc HDL Cholesterol COVID-19 PCR 07/10/20 07/10/20 07/10/20 19:20 23:00 23:00 WBC RBC Hgb Hct MCV MCH MCHC RDW Plt Count Neut % (Auto) Lymph % (Auto) [place] % (Auto) Eos % (Auto) Baso % (Auto) Neut # (Auto) Lymph # (Auto) [place] # (Auto) Eos # (Auto) Baso # (Auto) PT INR APTT 32 Sodium Potassium Chloride Carbon Dioxide BUN Creatinine Estimated GFR BUN/Creatinine Ratio Glucose Calcium Magnesium Total Bilirubin AST ALT Alkaline Phosphatase Total Creatine Kinase CK-MB (CK-2) CK-MB (CK-2) Rel Index Troponin I < 0.012 NT-Pro-B Natriuret Pep Total Protein Albumin Globulin Albumin/Globulin Ratio Triglycerides Cholesterol LDL Cholesterol, Calc HDL Cholesterol COVID-19 PCR Negative 07/10/20 07/11/20 23:00 05:18 WBC RBC Hgb Hct MCV MCH MCHC RDW Plt Count Neut % (Auto) Lymph % (Auto) [place] % (Auto) Eos % (Auto) Baso % (Auto) Neut # (Auto) Lymph # (Auto) [place] # (Auto) Eos # (Auto) Baso # (Auto) PT 13.1 H INR 1.1 APTT Sodium 139 Potassium 4.1 Chloride 104 Carbon Dioxide 27 BUN 10 Creatinine 0.70 Estimated GFR > 60.0 BUN/Creatinine Ratio 14.3 Glucose 140 H Calcium 9.1 Magnesium Total Bilirubin AST ALT Alkaline Phosphatase Total Creatine Kinase CK-MB (CK-2) CK-MB (CK-2) Rel Index Troponin I NT-Pro-B Natriuret Pep Total Protein Albumin Globulin Albumin/Globulin Ratio Triglycerides 216 H Cholesterol 162 LDL Cholesterol, Calc 95 HDL Cholesterol 24 L COVID-19 PCR Discharge Plan Discharge Plan Patient Disposition: Home Provider Discharge Comment: You were admitted to the hospital with shortness of breath. Your symptoms improved with nebulizers but your chest xr and CT of your chest showed some excess fluid. This may be due to the steroids you received recently but your symptoms improved and you should obtain an echocardiogram as an outpatient. You will be given a diuretic medication which may help as well as a medication to control asthma. Please follow up with your PCP for further evaluation with an Echocardiogram and pulmonary function tests. Discharge orders & Medications Prescriptions: New furosemide 20 mg Tablet 20 mg PO DAILY 30 Days Qty: 30 RF: 0 fluticasone propionate 50 mcg/actuation blister with device 1 inhalation INHALATION BID 30 Days Qty: 60 RF: 0 Continued mirtazapine 15 mg tablet 30 mg PO DAILY RF: 0 albuterol sulfate 90 mcg/actuation HFA aerosol inhaler 2 puff INHALATION Q6H PRN (Reason: Shortness Of Breath) RF: 0 omeprazole 20 mg capsule,delayed release(DR/EC) 40 mg PO DAILY RF: 0 diphenhydramine HCl [Benadryl] 25 mg capsule 75 mg PO BEDTIME RF: 0 levothyroxine 200 mcg Tablet 200 mcg PO DAILY RF: 0 gabapentin 100 mg Capsule 200 mg PO TID RF: 0 Follow up/Referrals: Taylor Lassiter [Primary Care Provider] - ( PLEASE CALL YOUR PRIMARY CARE PROVIDER TO SCHEDULE YOUR FOLLOW UP APPOINTMENT.) Diet/Activity/Treatments Diet: Diet as Tolerated Activity: As tolerated Visit Report/Discharge Packet Instructions: DI for Asthma -- Adult, DI for Chest Pain Visit Report Forms: Patient Portal/API, Stroke Signs & Symptoms Discharge Data Primary Care Provider: Taylor Lassiter Attending Provider: Austin Leiva Admit Date/Time: 07/10/20 21:46 Discharges patient from system. Discharge Date/Time: 07/11/20 14:17
--- NOTE | 2020-07-11 12:21 | PT-IP ANOTE ---
PT order received. Spoke to BECCA Tobias and pt has been I in her room. This PT also saw her earlier walking around in her room without AD. No LOB noted. Went in to see pt at 11am and pt stated that she felt completed normal regarding her mobility. Stated no need for PT. D/C from PT
--- NOTE | 2020-07-11 13:04 | PT-IP ANOTE ---
PT order received. Spoke to BECCA Tobias and pt has been I in her room. This PT also saw her earlier walking around in her room without AD. No LOB noted. Went in to see pt at 11am and pt stated that she felt completely normal regarding her mobility. Stated no need for PT. D/C PT order
[2020-07-11] MEDS: FUROSEMIDE 20 MG/2 ML VIAL IV (13:10)
--- NOTE | 2020-07-11 13:54 | CM.DANOTE ---
Discharge Planning/Care Management DCP: assessment: case received, EMR reviewed and met with pt during Team Bedside Rounds. Introduced self and role. Pt is a 60 year old female who admitted last night to care of hospitalist team. Payer: Ari Dejesus. PCP: assigned provider at [facility]. Dr. Martines noted in Rounds that he would be doing some tests and that pt may be able to d/c home later today. PT was ordered: PT did see pt in passing, confirmed that she was up independently in the room and had noted no changes in her usual independent mobility status: PT order was cancelled. Just noted a d/c order: checked in again with pt. She was up, dressed and going over the d/c paperwork with the RN. She noted she was pleased to be able to go home and confirmed that she would drive herself back to [place] as she did drive herself here. Clinic followup is planned and further outpt testing recommended. Advanced directive, confirm from FAMILY Start: 07/10/20 22:13 Freq: Q24H Status: Complete Protocol: Document 07/10/20 22:13 GMP (Rec: 07/10/20 22:49 GMP [id number]) Advance Directive, confirm on record Time 22:49 Person contacted pt Copy received No CM Discharge Assessment Start: 07/11/20 13:53 Freq: Status: Active Protocol: Document 07/11/20 13:54 ITV (Rec: 07/11/20 13:54 ITV [id number]) Discharge Planning Assessment Advance Directives? No Advance Directives on File No History Provided By Patient,Medical Record Prior Living Arrangements House Household Members spouse Type of transporation used prior to Drives own vehicle admit Independent with ADL's Yes Is patient alert and oriented? Yes Review Status In Process
--- NOTE | 2020-07-11 14:16 | PC.NURSE ---
All patient discharge instructions explained to patient. Pt to make follow up appt w/ primary care doc. Patient was educated about Asthma, and SS of Heart attack, along w/ SS of stroke. Patient educated about medications. Patient left facility via wheelchair and personal car.
--- NOTE | 2020-07-11 14:19 | DIET.PN ---
Dietary Progress Note Pt discharged before nutrition consult completed, recc pt meet regularly c RD to address nutrition status, super morbid obesity, and SOB.
== END 2020-07-11 14:17 | disposition home or self-care (01) ==
LOC: ED 18:51 → AC 21:47
PROVIDERS: Admitting Provider Nurse Practitioner Adult Health; Emergency Provider Emergency Medicine; Family Provider Nurse Practitioner Family; PCP Family Medicine; Referring Provider Emergency Medicine; Visit Provider Nurse Practitioner Adult Health
DX: R06.02 Shortness of breath (principal); F32.9 Major depressive disorder, single episode, unspecified; E03.9 Hypothyroidism, unspecified; M79.7 Fibromyalgia; K21.9 Gastro-esophageal reflux disease without esophagitis; J45.909 Unspecified asthma, uncomplicated; E66.01 Morbid (severe) obesity due to excess calories; Z68.43 Body mass index [BMI] 50.0-59.9, adult; Z11.59 Encounter for screening for other viral diseases
CPT/HCPCS: 36415; 71045; 71275; 80048; 80053; 80061; 82550; 83735; 83880; 84484; 85025; 85610; 85730; 87635; 93005; 94640; 94762; 96372; 96374; 96375; 99284; G0378; A9270; C9113; J1650; J1940; J2930; J7613

== ENCOUNTER → 2020-07-16 15:56 | Outpatient (CLI) | payer OTHER, SELFPAY ==
[2020-07-10 22:05] VITALS: BMI 56.5
--- NOTE | 2020-07-16 | DI.ECHO.S_ITS ---
[facility]---------+ [facility] +---------+ : : [address] : [address] [place] : : : : [id number] : : : : Phone: [phone] Echocardiogram Report + + :Name: NAOMY HERZOG Study Date: 07/16/2020 Height: 67 in : :[facility] Weight: 351 lb : : Gender: Female BSA: 2.6 m2 : :: 1960 Age: 60 yrs BP: 165/110 mmHg: :Reason For Study: DYSPNEA : : Performed By: Louie Castillo : :Referring: SHARON MAYORGA : + + Interpretation Summary 1) Normal left ventricular thickness, size, wall motion and systolic function (EF 60-65%). 2) Normal right ventricular size and function. 3) No significant valvular abnormalities. 4) Pulmonary artery pressures cannot be estimated because of the lack of a measurable TR jet velocity. 5) Hypertension present during the study (BP 165/110mmHg). 6) No prior Echo available for comparison. Procedure: A two-dimensional transthoracic echocardiogram with color flow and Doppler was performed. The study quality was technically adequate. There is no prior echocardiogram noted for this patient. The subcostal views were not obtained due to body habitus. The patient was in normal sinus rhythm during the exam. Left Ventricle: The left ventricle is normal in size. There is normal left ventricular wall thickness. The ejection fraction is estimated to be 60-65%. There are no focal wall motion abnormalities. Right Ventricle: The right ventricle grossly appears normal in size with probable normal systolic function. Atria: Both atria are normal in size. Mitral Valve: The mitral valve is normal in structure and function. There is no mitral regurgitation. Aortic Valve: The aortic valve is trileaflet. The aortic valve opens well. There is no aortic valve stenosis. No aortic regurgitation is present. Tricuspid Valve: The tricuspid valve is normal in structure and function. No tricuspid regurgitation. Pulmonary artery pressures cannot be estimated because of the lack of a measurable TR jet velocity. Pulmonic Valve: The pulmonic valve is not well seen, but is grossly normal. There is no pulmonic valvular regurgitation. Great Vessels: The aortic root is normal size. The dimensions of the ascending aorta are normal. The pulmonary artery is normal size. The inferior vena cava was not visualized. Pericardium/ Pleura There is no pericardial effusion. There is no pleural effusion. MMode/2D Measurements & Calculations LVIDd: 4.2 cm LVOT diam: 2.0 cm LVIDs: 2.2 cm Ao root diam: 2.6 cm FS: 48.5 % asc Aorta Diam: 3.3 cm EPSS: 0.62 cm IVSd: 0.81 cm LVPWd: 0.99 cm LV jonas. diameter/BSA (cm/m^2): 1.7 LV sys. diameter/BSA (cm/m^2): 0.85 LA dimension: 3.3 cm RA long axis: 4.3 cm LA A2 area: 19.3 cm2 RA area: 16.7 cm2 LA A4 area: 16.9 cm2 RA vol: 55.1 ml LA length (vol): 4.7 cm RA : 21.4 ml/m2 LA vol: 59.4 ml LA vol index: 23.1 ml/m2 Doppler Measurements & Calculations Ao V2 max: 197.1 cm/sec LVOT Max Edward: 104.7 cm/sec Ao V2 mean: 148.5 cm/sec LV V1 max P.4 mmHg Ao max P.5 mmHg LV V1 VTI: 26.3 cm Ao mean P.4 mmHg LIBRADO(I,D): 2.2 cm2 Ao V2 VTI: 36.7 cm LIBRADO(V,D): 1.6 cm2 sev ratio: 0.72 LIBRADO indexed to BSA (cm^2/m^2): 0.84 MV E max edward: 102.4 cm/sec PA V2 max: 141.2 cm/sec MV A max edward: 103.2 cm/sec PA V2 mean: 113.4 cm/sec MV E/A: 0.99 PA mean P.4 mmHg Med Peak E' Edward: 4.4 cm/sec PA pr(Accel): 37.9 mmHg E/E' med: 23.2 Lat Peak E' Edward: 8.4 cm/sec E/E' lat: 12.2 E/e' average: 17.7 MV dec time: 0.20 sec SV(LVOT): 79.4 ml Reading Physician:10:32 AM
== END ==
PROVIDERS: Family Provider Nurse Practitioner Family; PCP Family Medicine; Referring Provider Internal Medicine Cardiovascular Disease; Visit Provider Internal Medicine Cardiovascular Disease
DX: R06.09 Other forms of dyspnea (principal)
CPT/HCPCS: 93306

== ENCOUNTER 2021-04-30 15:42 | Emergency (ER) | payer OTHER, SELFPAY ==
[2020-07-10 22:05] VITALS: BMI 56.5
[2021-04-30] VITALS (9 sets, daily range): BP systolic 130–137; BP diastolic 61–93; PULSE 77–84; RESP 18; TEMP 38.6; O2SAT 97–99; BMI 55.6
--- NOTE | 2021-04-30 15:55 | DI.RAD.S_ITS ---
PROCEDURE: XR CHEST 1V INDICATIONS: suspected sepsis TECHNIQUE: One view of the chest was acquired. COMPARISON: [facility], CR, XR CHEST 1V, 07/10/2020, 17:44. FINDINGS: Surgical changes and devices: None. Lungs and pleura: Lungs are clear. No pleural effusions or pneumothorax. Mediastinum: Mediastinal contours appear normal. Heart size is normal. Bones and chest wall: No suspicious bony lesions. Overlying soft tissues appear unremarkable. IMPRESSION: No acute cardiopulmonary disease process. Dictated by: Taina Lowe MD, PhD on 04/30/2021 at 16:27 Approved by: Taina Lowe MD, PhD on 04/30/2021 at 16:27
[2021-04-30] MEDS: SODIUM CHLORIDE 0.9% 1,000 ML 1000 ML IV (16:05)
[2021-04-30 16:12] LABS: Add Manual Diff / Slide Review NO; Basophils Absolute Auto 100 /uL (0-100); Basophils Percent Auto 0.9 % (0-2); Eosinophils Absolute Auto 100 /uL (0-450); Eosinophils Percent Auto 0.8 % (2-4); Hematocrit 37.8 % (36-46); Hemoglobin 11.9 g/dL (12.0-16.0); Lymphocytes Absolute Auto 800 /uL (1100-4500); Lymphocytes Percent Auto 6.4 % (25-40); Mean Corpuscular HGB Conc 31.5 % (30-36); Mean Corpuscular Hemoglobin 26.1 PG (26-34); Monocytes Absolute Auto 600 /uL (0-900); Monocytes Percent Auto 4.6 % (3-14); Neutrophils Absolute Auto 10700 /uL (1500-7000); Neutrophils Percent Auto 87.3 % (50-75); Platelet Count 344 X10^3/uL (150-400); Red Blood Cell Count 4.56 X10^6/uL (4.0-5.2); Red Cell Distribution Width 14.2 % (11.6-14.8); White Blood Cell Count 12.2 X10^3/uL (4.5-11.0)
[2021-04-30 16:18] LABS: Lactate (Lactic Acid) 1.5 mmol/L (0.7-2.1)
[2021-04-30 16:21] LABS: Alanine Aminotransferase 15 IU/L (<35); Albumin 3.9 g/dL (3.5-5.0); Alkaline Phosphatase 148 U/L (38-126); Aspartate Aminotransferase 26 IU/L (14-36); BUN Creatinine Ratio 12.9 (6-22); Bilirubin Total 0.4 mg/dL (0.2-1.3); Blood Urea Nitrogen 12 mg/dL (7-17); Calcium 9.2 mg/dL (8.4-10.2); Carbon Dioxide 26 mmol/L (22-32); Chloride 104 mmol/L (98-107); Estimated Glomerular Filt Rate > 60.0 mL/min (>60); Glucose 121 mg/dL (80-110); HEMOLYSIS < 15 (0-50); Lipase 39 U/L (23-300); Potassium 4.4 mmol/L (3.4-5.1); Sodium 138 mmol/L (137-145); Total Protein 7.9 g/dL (6.3-8.2)
[2021-04-30 16:27] LABS: COVID19 -Nasal RAPID Negative (Negative)
[2021-04-30 16:36] LABS: Procalcitonin 0.23 ng/mL (<0.5)
--- NOTE | 2021-04-30 16:37 | ED_ITS ---
HPI - Fever General Chief Complaint: Fever Stated Complaint: abd/flank pain Time Seen by Provider: 04/30/21 16:22 Source: patient Mode of arrival: EMS Limitations: no limitations History of Present Illness HPI Narrative: 61-year-old female nonsmoker presents by EMS from [facility] for evaluation of urinary complaints, fever and right flank pain. She has had about 5 days of urinary dysuria, frequency, urgency. She tried taking some cranberry extract and this morning felt feverish and nauseated so she went to the clinic. She vomited once and upon hearing of this was sent here for evaluation of possible pyelonephritis. She is not dizzy nor weak or lightheaded. She denies chest pain or shortness of breath. Her pain is worse when she moves and improves with rest. It radiates from her suprapubic region to her bilateral flanks Related Data Home Medications Medication Instructions Recorded Confirmed albuterol sulfate 90 mcg/actuation 2 puff INHALATION Q6H PRN 04/23/20 07/10/20 aerosol inhaler diphenhydramine HCl 25 mg capsule 75 mg PO BEDTIME 04/23/20 07/10/20 (Benadryl) mirtazapine 15 mg tablet 30 mg PO DAILY 04/23/20 07/10/20 omeprazole 20 mg capsule,delayed 40 mg PO DAILY 04/23/20 07/10/20 release gabapentin 100 mg capsule 200 mg PO TID 07/10/20 07/10/20 levothyroxine 200 mcg tablet 200 mcg PO DAILY 07/10/20 07/10/20 Previous Rx's Medication Instructions Recorded cefpodoxime 200 mg tablet 200 mg PO BID 10 Days #20 tab 04/30/21 ondansetron 4 mg disintegrating 4 mg PO TID-QID PRN #10 tab 04/30/21 tablet Allergies Allergy/AdvReac Type Severity Reaction Status Date / Time acetaminophen [ACETAMINOPHEN] Allergy Intermediate RASH Verified 04/30/21 15:51 nitrofurantoin Allergy Intermediate RASH Verified 04/30/21 15:51 [From MACROBID] Penicillins [PENICILLINS] Allergy Intermediate RASH Verified 04/30/21 15:51 phenylpropanolamine Allergy Intermediate RASH/STOMACH Verified 04/30/21 15:51 [From TETRA] ACHE sulfamethoxazole Allergy Intermediate RASH/STOMACH Verified 04/30/21 15:51 [From SEPTRA] CRAMPS trimethoprim [From JUNRA] Allergy Intermediate RASH/STOMACH Verified 04/30/21 15:51 CRAMPS Review of Systems Review of Systems Narrative: GENERAL: See HPI HEENT: Denies sinus pain, ear pain, sore throat, difficulty swallowing, dizziness. RESPIRATORY: Denies dyspnea, cough, wheezing, hemoptysis, sputum. CARDIOVASCULAR: Denies chest pain, palpitations, orthopnea, edema, GASTROINTESTINAL: See HPI : See HPI MUSCULOSKELETAL: d see HPI SKIN: Denies rash, skin lesions, or other NEUROLOGIC: Denies weakness, headache, numbness, change in speech, confusion, seizures, incoordination. PSYCHIATRIC: No concerning psychosocial issues. 12 point review of systems is negative except for those stated above Patient History Medical History (Updated 04/30/21 @ 18:46 by Tima Peter DO) Asthma Chronic fatigue Depression Fibromyalgia Hypothyroid Surgical History Status post cholecystectomy Family History Father Heart disease Mother Heart disease Social History marital status: household members: spouse Smoking Status: Never smoker alcohol intake: never Smoking Status: Never smoker Substance Use Type: does not use Exam Narrative Exam Narrative: GENERAL: [61] year old patient appears stated age. Well-devel oped patient, in mild distress. HEAD: Atraumatic. Normocephalic. EYES: Pupils equal round and reactive. Extraocular motions intact. No scleral icterus. No injection or drainage. ENT: Nose without bleeding, purulent drainage. Throat without erythema, tonsillar hypertrophy or exudate. Airway patent. NECK: Trachea midline. Non tender CARDIOVASCULAR: Regular rate and rhythm without murmurs, gallops, or rubs. RESPIRATORY: Clear to auscultation. Breath sounds equal bilaterally. No wheezes, rales, or rhonchi. GASTROINTESTINAL: Abdomen soft, non-tender, nondistended. EXTREMITIES: No edema or joint tenderness. BACK: Nontender without deformity or crepitance. No flank tenderness. NEURO: AOx3. SKIN: No rash or erythema of visible areas Initial Vital Signs Initial Vital Signs: Vital Signs Temperature 101.5 F H 04/30/21 15:51 Pulse Rate 79 04/30/21 15:51 Respiratory Rate 18 04/30/21 15:51 Blood Pressure 135/63 04/30/21 15:51 Pulse Oximetry 98 04/30/21 15:51 Course Orders Ordered: ED Orders 04/30/21 15:45 Blood Culture Stat Complete Blood Count AUTO DIFF Stat Comprehensive Metabolic Panel Stat Lactate (Lactic Acid) Stat Lipase Stat Procalcitonin Stat 04/30/21 15:55 XR chest 1V Stat EKG-12 Lead Stat 04/30/21 16:00 COVID19 -Nasal swab/Pre-Proc Stat 04/30/21 16:55 Urine Culture Stat Urine Microscopic Stat Discontinued Medications Sodium Chloride (Normal Saline 0.9%) 1,000 mls @ 1,000 mls/hr IV BOLUS ONE Stop: 04/30/21 16:54 Last Infusion: 04/30/21 17:22 Dose: 0 mls/hr Documented by: JUAN J Admin: 04/30/21 16:05 Dose: 1,000 mls/hr Documented by: EMILY Vital Signs Vital signs: Vital Signs - 8 hr 04/30/21 15:51 04/30/21 16:16 04/30/21 16:30 Temperature 101.5 F H Pulse Rate 79 78 80 Respiratory Rate 18 18 Blood Pressure 135/63 135/63 Pulse Oximetry 98 99 98 04/30/21 16:58 04/30/21 17:09 04/30/21 17:11 Temperature Pulse Rate 84 78 Respiratory Rate Blood Pressure 131/93 H Pulse Oximetry 99 97 04/30/21 17:30 04/30/21 17:31 04/30/21 18:00 Temperature Pulse Rate 79 79 77 Respiratory Rate Blood Pressure 137/61 130/62 Pulse Oximetry 98 98 98 MDM - Fever Lab Data Result diagrams: 04/30/21 15:45 04/30/21 15:45 Labs: Lab Results 04/30/21 04/30/21 04/30/21 Range/Units 15:45 15:45 15:45 WBC 12.2 H (4.5-11.0) X10^3/uL RBC 4.56 (4.0-5.2) X10^6/uL Hgb 11.9 L (12.0-16.0) g/dL Hct 37.8 (36-46) % MCV 83.0 (80-100) fL MCH 26.1 (26-34) PG MCHC 31.5 (30-36) % RDW 14.2 (11.6-14.8) % Plt Count 344 (150-400) X10^3/uL Neut % (Auto) 87.3 H (50-75) % Lymph % (Auto) 6.4 L (25-40) % [place] % (Auto) 4.6 (3-14) % Eos % (Auto) 0.8 L (2-4) % Baso % (Auto) 0.9 (0-2) % Neut # (Auto) 01966 H (9521-1935) /uL Lymph # (Auto) 800 L (4894-2979) /uL [place] # (Auto) 600 (0-900) /uL Eos # (Auto) 100 (0-450) /uL Baso # (Auto) 100 (0-100) /uL Sodium 138 (137-145) mmol/L Potassium 4.4 (3.4-5.1) mmol/L Chloride 104 (98-107) mmol/L Carbon Dioxide 26 (22-32) mmol/L BUN 12 (7-17) mg/dL Creatinine 0.93 (0.52-1.04) mg/dL Estimated GFR > 60.0 (>60) mL/min BUN/Creatinine Ratio 12.9 (6-22) Glucose 121 H (80-110) mg/dL Lactate 1.5 (0.7-2.1) mmol/L Calcium 9.2 (8.4-10.2) mg/dL Total Bilirubin 0.4 (0.2-1.3) mg/dL AST 26 (14-36) IU/L ALT 15 (<35) IU/L Alkaline Phosphatase 148 H (38-126) U/L Total Protein 7.9 (6.3-8.2) g/dL Albumin 3.9 (3.5-5.0) g/dL Globulin 4.0 (1.7-4.1) g/dL Albumin/Globulin Ratio 1.0 (1.0-2.8) Lipase 39 (23-300) U/L Procalcitonin 0.23 (<0.5) ng/mL Urine RBC (0-5/HPF) Urine WBC (0-5/HPF) Ur Squamous Epith Cells (0-5/HPF) Urine Bacteria (None) Ur Culture Indicated? SARS-CoV-2 (PCR) (Negative) 04/30/21 04/30/21 Range/Units 16:00 16:55 WBC (4.5-11.0) X10^3/uL RBC (4.0-5.2) X10^6/uL Hgb (12.0-16.0) g/dL Hct (36-46) % MCV (80-100) fL MCH (26-34) PG MCHC (30-36) % RDW (11.6-14.8) % Plt Count (150-400) X10^3/uL Neut % (Auto) (50-75) % Lymph % (Auto) (25-40) % [place] % (Auto) (3-14) % Eos % (Auto) (2-4) % Baso % (Auto) (0-2) % Neut # (Auto) (6650-7417) /uL Lymph # (Auto) (3630-1528) /uL [place] # (Auto) (0-900) /uL Eos # (Auto) (0-450) /uL Baso # (Auto) (0-100) /uL Sodium (137-145) mmol/L Potassium (3.4-5.1) mmol/L Chloride (98-107) mmol/L Carbon Dioxide (22-32) mmol/L BUN (7-17) mg/dL Creatinine (0.52-1.04) mg/dL Estimated GFR (>60) mL/min BUN/Creatinine Ratio (6-22) Glucose (80-110) mg/dL Lactate (0.7-2.1) mmol/L Calcium (8.4-10.2) mg/dL Total Bilirubin (0.2-1.3) mg/dL AST (14-36) IU/L ALT (<35) IU/L Alkaline Phosphatase (38-126) U/L Total Protein (6.3-8.2) g/dL Albumin (3.5-5.0) g/dL Globulin (1.7-4.1) g/dL Albumin/Globulin Ratio (1.0-2.8) Lipase (23-300) U/L Procalcitonin (<0.5) ng/mL Urine RBC None seen (0-5/HPF) Urine WBC 10-30/hpf H (0-5/HPF) Ur Squamous Epith Cells None seen (0-5/HPF) Urine Bacteria Many (>30) H (None) Ur Culture Indicated? Culture not indicate SARS-CoV-2 (PCR) Negative (Negative) Urine Dip Bedside Urine Glucose Negative Bedside Urine Bilirubin - Negative Bedside Urine Ketone - Negative Urine Specific [place] 1.015 Bedside Urine Occult Blood + Bedside Urine pH 6 Bedside Urine Protein +/- 15 Bedside Urine Urobilinogen - Negative Bedside Urine Nitrite - Negative Bedside Urine Leukocytes + 70 Esterase MDM Narrative Medical decision making narrative: Patient has reassuring physical exam, labs and vital signs. She is tolerating orals, pain is well controlled and she shows no signs of sepsis. Antibiotics have been sent to her pharmacy, questions answered to her apparent satisfaction and return precautions discussed Discharge Plan Departure Patient Disposition: Home Clinical Impression: Pyelonephritis Instructions: DI for Kidney Infection Activity Restrictions/Additional Instructions: *You have been diagnosed with [pyelonephritis] *What to do: *Please continue to take your regular medications as directed. [x ] New medication prescriptions sent to your pharmacy: [[facility] in [place] ] [ ] New medication written as a paper prescription [ ] No new medications given *Please follow up with your primary care provider in 2-3 days, call for an appointment. Let them know you were seen in the Emergency Department and that we ask that you be seen in follow up. We will electronically transmit a record of today's note if your PCP is in our system *If you do not have a primary care provider please contact the [facility] Resource line at [phone]. They will ask some questions about your medical history and help get you set up with a doctor in the community. *Return to Emergency Department if you should have any new, worsening or concer emily symptoms, such as [fever greater than 101 F, shaking chills, worsening pain, persistent vomiting or other bothersome symptoms] Prescriptions: New cefpodoxime 200 mg tablet 200 mg PO BID 10 Days Qty: 20 RF: 0 ondansetron 4 mg tablet,disintegrating 4 mg PO TID-QID PRN (Reason: nausea and vomiting) Qty: 10 RF: 0 No Action mirtazapine 15 mg tablet 30 mg PO DAILY RF: 0 albuterol sulfate 90 mcg/actuation HFA aerosol inhaler 2 puff INHALATION Q6H PRN (Reason: Shortness Of Breath) RF: 0 omeprazole 20 mg capsule,delayed release(DR/EC) 40 mg PO DAILY RF: 0 diphenhydramine HCl [Benadryl] 25 mg capsule 75 mg PO BEDTIME RF: 0 levothyroxine 200 mcg Tablet 200 mcg PO DAILY RF: 0 gabapentin 100 mg Capsule 200 mg PO TID RF: 0 Referrals: Taylor Lassiter [Primary Care Provider] -
[2021-04-30 17:26] LABS: RBC Urine None Seen (0-5/HPF)
[2021-04-30 17:50] LABS: Bacteria Urine Many (>30); Squamous Epithelial Cell Urine None Seen (0-5/HPF); WBC Urine 10-30/HPF (0-5/HPF)
[2021-05-02 03:15] LABS: Enterococcus species Not Detected (Not Detect); Listeria monocytogenes Not Detected (Not Detect)
[2021-05-02 03:16] LABS: Acinetobacter baumannii Not Detected (Not Detect); Enterobacteriaceae species Detected (Not Detect); KPC (carbapenem-resist gene) Not Detected (Not Detect); Staphylococcus species Not Detected (Not Detect); Streptococcus agalactiae (Gr B Not Detected (Not Detect); Streptococcus pneumonia Not Detected (Not Detect); Streptococcus pyogenes (Gr A) Not Detected (Not Detect); Streptococcus species Not Detected (Not Detect)
[2021-05-02 03:17] LABS: Candida albicans Not Detected (Not Detect); Candida glabrata Not Detected (Not Detect); Candida krusei Not Detected (Not Detect); Candida parapsilosis Not Detected (Not Detect); Candida tropicalis Not Detected (Not Detect); E. coli Detected (Not Detect); Enterobacter cloacae complex Not Detected (Not Detect); Haemophilus influenzae Not Detected (Not Detect); Neisseria meningitidis Not Detected (Not Detect); Proteus species Not Detected (Not Detect); Pseudomonas aeruginosa Not Detected (Not Detect); Serratia marcescens Not Detected (Not Detect)
== END 2021-04-30 18:52 | disposition home or self-care (01) ==
PROVIDERS: Emergency Provider Emergency Medicine; Family Provider Nurse Practitioner Family; PCP Family Medicine
DX: N12 Tubulo-interstitial nephritis, not specified as acute or chronic (principal); R50.9 Fever, unspecified; R30.0 Dysuria; Z20.822 Contact with and (suspected) exposure to COVID-19
CPT/HCPCS: 36415; 71045; 80053; 81003; 81015; 83605; 83690; 84145; 85025; 87040; 87077; 87086; 87150; 87186; 87205; 87635; 96360; 99284; C9803

== ENCOUNTER 2021-09-18 20:16 | Emergency (ER) | payer OTHER, SELFPAY ==
[2020-07-10 22:05] VITALS: BMI 56.5
[2021-09-18] VITALS (14 sets, daily range): BP systolic 129–183; BP diastolic 63–82; PULSE 67–77; RESP 10–20; TEMP 36.6; O2SAT 94–100; BMI 52.4
--- NOTE | 2021-09-18 20:33 | DI.RAD.S_ITS ---
PROCEDURE: XR CHEST 1V INDICATIONS: chest pain TECHNIQUE: One view of the chest was acquired. COMPARISON: [facility], CT, CT ANGIO CHEST PE PROTOCOL, 07/11/2020, 11:35. [facility], CR, XR CHEST 1V, 04/30/2021, 16:18. FINDINGS: Surgical changes and devices: None. Lungs and pleura: Nodular density in the right upper lung zone, likely representing the patient's anterior rib. No consolidation, pleural effusions or pneumothorax. Mediastinum: Mediastinal contours appear normal. Heart size is normal. Bones and chest wall: No suspicious bony lesions. Overlying soft tissues appear unremarkable. IMPRESSION: No acute cardiopulmonary abnormality. Dictated by: Dmitri Adler M.D. on 09/18/2021 at 20:45 Approved by: Dmitri Adler M.D. on 09/18/2021 at 20:47
[2021-09-18 20:42] LABS: Add Manual Diff / Slide Review NO; Basophils Absolute Auto 200 /uL (0-100); Basophils Percent Auto 1.4 % (0-2); Eosinophils Absolute Auto 300 /uL (0-450); Eosinophils Percent Auto 2.3 % (2-4); Hemoglobin 12.6 g/dL (12.0-16.0); Lymphocytes Absolute Auto 2400 /uL (1100-4500); Lymphocytes Percent Auto 16.6 % (25-40); Mean Corpuscular HGB Conc 32.3 % (30-36); Mean Corpuscular Hemoglobin 26.8 PG (26-34); Mean Corpuscular Volume 82.9 fL (80-100); Monocytes Absolute Auto 600 /uL (0-900); Monocytes Percent Auto 4.3 % (3-14); Neutrophils Absolute Auto 11100 /uL (1500-7000); Neutrophils Percent Auto 75.4 % (50-75); Platelet Count 392 X10^3/uL (150-400); Red Cell Distribution Width 16.1 % (11.6-14.8); White Blood Cell Count 14.7 X10^3/uL (4.5-11.0)
[2021-09-18 20:58] LABS: Alanine Aminotransferase 35 IU/L (<35); Albumin 3.8 g/dL (3.5-5.0); Albumin Globulin Ratio 1.1 (1.0-2.8); Alkaline Phosphatase 170 U/L (38-126); Aspartate Aminotransferase 33 IU/L (14-36); BUN Creatinine Ratio 16.9 (6-22); Bilirubin Total 0.4 mg/dL (0.2-1.3); Blood Urea Nitrogen 15 mg/dL (7-17); Calcium 8.7 mg/dL (8.4-10.2); Carbon Dioxide 32 mmol/L (22-32); Chloride 104 mmol/L (98-107); Creatine Kinase 25 U/L (30-135); Estimated Glomerular Filt Rate > 60.0 mL/min (>60); Globulin 3.4 g/dL (1.7-4.1); Glucose 110 mg/dL (80-110); HEMOLYSIS < 15 (0-50); Lipase 65 U/L (23-300); Potassium 4.2 mmol/L (3.4-5.1); Sodium 140 mmol/L (137-145); Total Protein 7.2 g/dL (6.3-8.2)
--- NOTE | 2021-09-18 21:00 | ED.CHESTPAIN ---
HPI - Chest Pain General Chief Complaint: Chest Pain Stated Complaint: PRESSURE ON CHEST LEFT ARM PAIN Time Seen by Provider: 09/18/21 20:32 Source: patient Mode of arrival: Ambulatory Limitations: no limitations Limitations: no limitations History of Present Illness HPI narrative: This is a 61-year-old female comes emergency department complaint of substernal chest pain which has been present without radiation for several days and then developed left arm pain particularly over the elbow region today. She states that it has been steady about a 7/10 with nothing really making it worse other than when she walks around. She states movement does not seem to bother her symptoms. Does not go away if she sits or rests. She has not appreciated any changes with movement of her body or her upper extremity. She tried some ibuprofen without any improvement. She has felt short of breath. She has had some diaphoresis intermittently. She denies any fevers or chills. No cold, cough, or congestion. She has not had any vomiting but describes nausea or some indigestion. 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 She has had any changes with bowel movements or urination. She has noticed any swelling in her extremities. She does not take any aspirin or thinners. She has been taking naproxen daily. She does have a history of fibromyalgia, acid reflux, depressive symptoms and dyslipidemia. No hypertension or dyslipidemia. She states she has had a prior cholecystectomy. She has never had a stress test or cardiac evaluation. Her father age 59 of an [facility] and she has at least 1 sibling with heart issues but is unsure of the exact nature. Denies tobacco, alcohol or illicit. Her primary care is Dr. Higgins Related Data Home Medications Medication Instructions Recorded Confirmed albuterol sulfate 90 mcg/actuation 2 puff INHALATION Q6H PRN 04/23/20 07/10/20 aerosol inhaler diphenhydramine HCl 25 mg capsule 75 mg PO BEDTIME 04/23/20 07/10/20 (Benadryl) mirtazapine 15 mg tablet 30 mg PO DAILY 04/23/20 07/10/20 omeprazole 20 mg capsule,delayed 40 mg PO DAILY 04/23/20 07/10/20 release gabapentin 100 mg capsule 200 mg PO TID 07/10/20 07/10/20 levothyroxine 200 mcg tablet 200 mcg PO DAILY 07/10/20 07/10/20 Previous Rx's Medication Instructions Recorded ondansetron 4 mg disintegrating 4 mg PO TID-QID PRN #10 tab 04/30/21 tablet azithromycin 250 mg tablet See Rx Instructions .ROUTE 09/19/21 .COMPLEX #6 tab prednisone 50 mg tablet 50 mg PO DAILY #5 tab 09/19/21 Allergies Allergy/AdvReac Type Severity Reaction Status Date / Time acetaminophen [ACETAMINOPHEN] Allergy Intermediate RASH Verified 04/30/21 15:51 nitrofurantoin Allergy Intermediate RASH Verified 04/30/21 15:51 [From MACROBID] Penicillins [PENICILLINS] Allergy Intermediate RASH Verified 04/30/21 15:51 phenylpropanolamine Allergy Intermediate RASH/STOMACH Verified 04/30/21 15:51 [From TETRA] ACHE sulfamethoxazole Allergy Intermediate RASH/STOMACH Verified 04/30/21 15:51 [From SEPTRA] CRAMPS trimethoprim [From SEPTRA] Allergy Intermediate RASH/STOMACH Verified 04/30/21 15:51 CRAMPS Review of Systems Review of Systems ROS Unobtainable: All systems reviewed & are unremarkable except as noted in HPI and below Patient History Medical History (Updated 09/19/21 @ 01:52 by Bindu Hurst DO) Asthma Chronic fatigue Depression Fibromyalgia Hypothyroid Surgical History Status post cholecystectomy Family History Father Heart disease Mother Heart disease Social History marital status: household members: spouse Smoking Status: Never smoker alcohol intake: never Smoking Status: Never smoker Substance Use Type: does not use Exam Narrative Exam Narrative: GENERAL: Alert and oriented x three, obese female in mild distress. HEENT: Head normocephalic, atraumatic, EOMI, pupils reactive, face symmetric, moist mucous membranes NECK: Supple, full range of motion CARDIOVASCULAR: Regular rate and rhythm without murmurs, rubs or gallops. Rash, erythema or skin changes. RESPIRATORY: Breath sounds equal bilaterally, no wheezes rales or rhonchi. ABDOMEN: Soft, nontender. Normoactive bowel sounds all 4 quadrants. No guarding or rebound, rigidity, no mass : No CVA tenderness EXTREMITIES: Normal range of motion, no clubbing or edema. Neurovascularly intact. Full range of motion. 5/5 muscle strength. 2+ pulses bilaterally. Normal sensation bilateral upper extremities. NEUROLOGICAL: Cranial nerves II through XII grossly intact. Moving all extremities SKIN: Warm, dry, no petechiae, no rashes or lesions. Initial Vital Signs Initial Vital Signs: Vital Signs Pulse Rate 71 09/18/21 20:24 Respiratory Rate 15 09/18/21 20:24 Pulse Oximetry 99 09/18/21 20:24 Course Orders Ordered: ED Orders 09/18/21 20:22 EKG-12 Lead Stat 09/18/21 20:33 XR chest 1V Stat 09/18/21 20:35 BNP [NT-proBNP (BNP-Adult 18+)] Stat Complete Blood Count AUTO DIFF Stat Comprehensive Metabolic Panel Stat Lipase Stat Magnesium Stat Troponin & CK Cardiac Panel Stat 09/18/21 21:15 COVID19 -Nasal swab/Pre-Proc Stat 09/18/21 22:27 EKG-12 Lead Stat 09/18/21 22:45 Trop I [Troponin I] Stat 09/18/21 23:44 CT angio chest PE protocol Stat Discontinued Medications Aspirin (Aspirin 81 Mg Chew Tab) 324 mg PO NOW ONE Stop: 09/18/21 21:16 Last Admin: 09/18/21 21:25 Dose: 324 mg Documented by: MARTIN Azithromycin (Azithromycin 250 Mg Tablet) 500 mg PO NOW ONE Stop: 09/19/21 01:45 Last Admin: 09/19/21 02:01 Dose: 500 mg Documented by: MONA Methylprednisolone (Methylprednisolone 125 Mg/2 Ml Vial) 125 mg IV NOW ONE Stop: 09/19/21 01:45 Last Admin: 09/19/21 02:01 Dose: 125 mg Documented by: MONA Nitroglycerin (Nitroglycerin 0.4 Mg Sl Tab) 0.4 mg SL [id number] PRN PRN Reason: Chest Pain Last Admin: 09/18/21 21:53 Dose: 0.4 mg Documented by: Admin: 09/18/21 21:31 Dose: 0.4 mg Documented by: Admin: 09/18/21 21:25 Dose: 0.4 mg Documented by: ATAYLOR Reevaluation(s) Reevaluation #1: Patient had middle to no change with nitro sublingually. She states when she moved around her chest pain was still present. We discussed her labs and x-ray finding discussed given CT angiography which patient is agreeable too. Vital Signs Vital signs: Vital Signs - 8 hr 09/18/21 20:24 09/18/21 20:26 09/18/21 21:00 Temperature 97.9 F Pulse Rate 71 74 69 Respiratory Rate 15 14 19 Blood Pressure 183/82 H Pulse Oximetry 99 99 99 09/18/21 21:25 09/18/21 21:30 09/18/21 21:32 Temperature Pulse Rate 67 77 74 Respiratory Rate 12 14 13 Blood Pressure 183/81 H 151/72 H Pulse Oximetry 100 94 94 09/18/21 21:45 09/18/21 22:00 09/18/21 22:15 Temperature Pulse Rate 70 73 68 Respiratory Rate 20 18 20 Blood Pressure 138/71 129/63 132/65 Pulse Oximetry 96 94 97 09/18/21 22:30 09/18/21 23:00 09/18/21 23:15 Temperature Pulse Rate 70 68 67 Respiratory Rate 13 11 L 11 L Blood Pressure 134/70 146/76 H 151/82 H Pulse Oximetry 97 98 99 09/18/21 23:30 09/18/21 23:45 09/19/21 00:00 Temperature Pulse Rate 69 69 69 Respiratory Rate 11 L 10 L 10 L Blood Pressure 155/80 H 153/80 H Pulse Oximetry 97 98 98 09/19/21 00:01 09/19/21 00:30 09/19/21 01:00 Temperature Pulse Rate 69 72 68 Respiratory Rate 12 10 L 11 L Blood Pressure 148/83 H Pulse Oximetry 98 99 96 09/19/21 01:30 09/19/21 02:00 Temperature Pulse Rate 67 71 Respiratory Rate 12 16 Blood Pressure 140/80 Pulse Oximetry 96 96 MDM - Chest Pain Lab Data Result diagrams: 09/18/21 20:35 09/18/21 20:35 Labs: Lab Results 09/18/21 09/18/21 09/18/21 Range/Units 20:35 20:35 20:35 WBC 14.7 H (4.5-11.0) X10^3/uL RBC 4.70 (4.0-5.2) X10^6/uL Hgb 12.6 (12.0-16.0) g/dL Hct 39.0 (36-46) % MCV 82.9 (80-100) fL MCH 26.8 (26-34) PG MCHC 32.3 (30-36) % RDW 16.1 H (11.6-14.8) % Plt Count 392 (150-400) X10^3/uL Neut % (Auto) 75.4 H (50-75) % Lymph % (Auto) 16.6 L (25-40) % [place] % (Auto) 4.3 (3-14) % Eos % (Auto) 2.3 (2-4) % Baso % (Auto) 1.4 (0-2) % Neut # (Auto) 53989 H (9639-2823) /uL Lymph # (Auto) 2400 (2891-5400) /uL [place] # (Auto) 600 (0-900) /uL Eos # (Auto) 300 (0-450) /uL Baso # (Auto) 200 H (0-100) /uL Sodium 140 (137-145) mmol/L Potassium 4.2 (3.4-5.1) mmol/L Chloride 104 (98-107) mmol/L Carbon Dioxide 32 (22-32) mmol/L BUN 15 (7-17) mg/dL Creatinine 0.89 (0.52-1.04) mg/dL Estimated GFR > 60.0 (>60) mL/min BUN/Creatinine Ratio 16.9 (6-22) Glucose 110 (80-110) mg/dL Calcium 8.7 (8.4-10.2) mg/dL Magnesium 2.0 (1.6-2.3) mg/dL Total Bilirubin 0.4 (0.2-1.3) mg/dL AST 33 (14-36) IU/L ALT 35 H (<35) IU/L Alkaline Phosphatase 170 H (38-126) U/L Total Creatine Kinase 25 L (30-135) U/L CK-MB (CK-2) TNP CK-MB (CK-2) Rel Index TNP Troponin I < 0.012 (0.01-0.034) ng/mL NT-Pro-B Natriuret Pep 64 (<125) pg/mL Total Protein 7.2 (6.3-8.2) g/dL Albumin 3.8 (3.5-5.0) g/dL Globulin 3.4 (1.7-4.1) g/dL Albumin/Globulin Ratio 1.1 (1.0-2.8) Lipase 65 (23-300) U/L SARS-CoV-2 (PCR) (Negative) 09/18/21 09/18/21 Range/Units 21:15 22:45 WBC (4.5-11.0) X10^3/uL RBC (4.0-5.2) X10^6/uL Hgb (12.0-16.0) g/dL Hct (36-46) % MCV (80-100) fL MCH (26-34) PG MCHC (30-36) % RDW (11.6-14.8) % Plt Count (150-400) X10^3/uL Neut % (Auto) (50-75) % Lymph % (Auto) (25-40) % [place] % (Auto) (3-14) % Eos % (Auto) (2-4) % Baso % (Auto) (0-2) % Neut # (Auto) (7860-8776) /uL Lymph # (Auto) (3383-4636) /uL [place] # (Auto) (0-900) /uL Eos # (Auto) (0-450) /uL Baso # (Auto) (0-100) /uL Sodium (137-145) mmol/L Potassium (3.4-5.1) mmol/L Chloride (98-107) mmol/L Carbon Dioxide (22-32) mmol/L BUN (7-17) mg/dL Creatinine (0.52-1.04) mg/dL Estimated GFR (>60) mL/min BUN/Creatinine Ratio (6-22) Glucose (80-110) mg/dL Calcium (8.4-10.2) mg/dL Magnesium (1.6-2.3) mg/dL Total Bilirubin (0.2-1.3) mg/dL AST (14-36) IU/L ALT (<35) IU/L Alkaline Phosphatase (38-126) U/L Total Creatine Kinase (30-135) U/L CK-MB (CK-2) CK-MB (CK-2) Rel Index Troponin I < 0.012 (0.01-0.034) ng/mL NT-Pro-B Natriuret Pep (<125) pg/mL Total Protein (6.3-8.2) g/dL Albumin (3.5-5.0) g/dL Globulin (1.7-4.1) g/dL Albumin/Globulin Ratio (1.0-2.8) Lipase (23-300) U/L SARS-CoV-2 (PCR) Negative (Negative) Imaging Data Chest x-ray: Radiologist's Impression: Maine Avila??61??F??1960 ? Allergy/Adv: acetaminophen, nitrofurantoin, Penicillins, phenylpropanolamine, sulfamethoxazole, trimethoprim (More??) Close Chest X-Ray (Signed) NayelyDmitri - 09/18/21 Chest X-Ray (Signed) Taina Lowe - 04/30/21 Echocardiogram Ultrasound (Signed) Phoebe Mayorga - 07/16/20 Chest CTA (Signed) Cali Duncan - 07/11/20 Telemetry Strips 07/10/20 Telemetry Strips 07/10/20 Chest X-Ray (Signed) Dutch Patterson - 07/10/20 Launch?Image [address] [address] XRay Report Signed Patient: Maine Avila MR#: [id number] : 1960 Acct:[id number] Age/Sex: 61 / F Date of Service: 09/18/21 Loc: ED Accession Number: [id number] ?? Procedure: XR chest 1V Ordering Provider: Bindu Hurst D.O. PROCEDURE:? XR CHEST 1V ? INDICATIONS:? chest pain ? TECHNIQUE:? One view of the chest was acquired.? ? COMPARISON:? [facility], CT, CT ANGIO CHEST PE PROTOCOL, 07/11/2020, 11:35.? [facility], CR, XR CHEST 1V, 04/30/2021, 16:18. ? FINDINGS:? ? Surgical changes and devices:? None.? ? Lungs and pleura:? Nodular density in the right upper lung zone, likely representing the patient's anterior rib.? No consolidation, pleural effusions or pneumothorax.? ? Mediastinum:? Mediastinal contours appear normal.? Heart size is normal.? ? Bones and chest wall:? No suspicious bony lesions.? Overlying soft tissues appear unremarkable.? ? IMPRESSION:? No acute cardiopulmonary abnormality. ? ? Dictated by: Dmitri Adler M.D. on 09/18/2021 at 20:45 ? ? Approved by: Dmitri Adler M.D. on 09/18/2021 at 20:47? CT scan - chest: Radiologist's Impression: Launch?[place] [address] CT Scan Report Signed Patient: Maine Avila MR#: [id number] : 1960 Acct:[id number] Age/Sex: 61 / F Date of Service: 09/18/21 Loc: ED Accession Number: [id number] ?? Procedure: CT angio chest PE protocol Ordering Provider: Bindu Hurst D.O. PROCEDURE:? CT ANGIO CHEST PE PROTOCOL ? INDICATIONS:? chest pain ? TECHNIQUE:? After the administration of intravenous contrast, 2 mm thick sections acquired from the pulmonary apices to the posterior costophrenic angles.? 3-dimensional maximum intensity projection (MIP) coronal and sagittal reformats were then acquired through the thorax.? For radiation dose reduction, the following was used:? automated exposure control, adjustment of mA and/or kV according to patient size.? ? COMPARISON:? [facility], CT, CT ANGIO CHEST PE PROTOCOL, 07/11/2020, 11:35. ? FINDINGS:? Image quality:? Suboptimal due to poor bolus timing and other technical factors..? ? Pulmonary arteries:? Pulmonary arteries are normal in size.? Main right left pulmonary arteries are free of thrombus, however the technical quality of the study is inadequate to exclude thrombus in a branch artery. ? Lungs and pleura:? Bilateral lower lobe bronchial wall thickening.? No dense consolidations.? No pleural effusions or pneumothorax.? Central and peripheral airways are patent.? ? Mediastinum:? Heart size is normal, without pericardial effusion.? Mild to moderate coronary artery calcification.? No mediastinal or hilar adenopathy.? Thoracic aorta is normal in caliber and enhancement.? Esophagus is normal in caliber, with a small hiatal hernia.? ? Bones and chest wall:? No suspicious bony lesions.? Ribs and thoracic spine appear intact throughout.? Thyroid gland is diminutive.? No axillary or supraclavicular adenopathy.? ? Abdomen:? Visualized upper abdominal solid organs appear normal in the early arterial phase of enhancement.? ? IMPRESSION:? 1. Due to suboptimal bolus timing and other technical factors, the study is nondiagnostic for excluding peripheral pulmonary embolus.? 2. No secondary signs to suggest embolus such as right heart strain or pulmonary parenchymal opacity. 3. Mild bilateral lower lobe bronchial wall thickening suggesting bronchitis.? ? ? Dictated by: Analisa Duarte M.D. on 09/19/2021 at 1:20 ? ? Approved by: Analisa Duarte M.D. on 09/19/2021 at 1:25? ECG Data Attestation: I personally reviewed and interpreted this ECG as follows: Prior ECG tracings: available for review Interpretation: Sinus rhythm, low-voltage QRS, rate of 72, MA 152, QRS is 78 QTC of 442. Patient does not have any acute ischemic changes appreciated. Patient has prior EKG from 07/10/2020 which appears similar. Sinus rhythm rate of 69 MA 160 QRS is 74 and QTC of 454. No acute ST changes appreciated or from prior EKG this evening. MDM Narrative Medical decision making narrative: This is a 61-year-old female comes emergency department with complaint of chest for several days and now pain in her left upper extremity. Patient does not have any acute EKG changes in comparison to priors. Her troponin is negative as well as BNP. She does have leukocytosis but no other care changes to her lab work that would explain her symptoms. Chest x-ray is negative. Covid swab is negative. D-dimer is deferred as is likely be elevated. After discussion with patient plan for CT angiography. This shows changes consistent with bronchitis, no large PE or secondary signs of embolus such as right heart strain or pulmonary parenchymal opacity. After re-evaluation with patient she does state that she has been using her albuterol more frequently and she has had a mild cough which she did not really admit to initially on evaluation. Discussed that I suspect she has more bronchitis causing her symptoms. Plan for steroids, azithromycin this may be helpful and short-term follow-up with her primary care. Discharge Plan Departure Patient Disposition: Home Clinical Impression: Bronchitis, Atypical chest pain Instructions: Acute Bronchitis Activity Restrictions/Additional Instructions: Follow-up with your physician for recheck. Your labs and imaging suggest you may have bronchitis or an infection in your lungs that can also cause wheezing or shortness of breath. I would recommend taking steroids daily until gone. Antibiotics until gone. You can continue to use your albuterol as needed for shortness of breath. Prescription sent to [facility]. Please return for fevers, new or worsening chest pain, shortness of breath, lightheadedness or passing out, persistent vomiting or new swelling of your extremities, redness or warmth, new weakness loss of sensation or other new or concerning symptoms. Prescriptions: New prednisone 50 mg tablet 50 mg PO DAILY Qty: 5 0RF azithromycin 250 mg tablet See Rx Instructions .ROUTE .COMPLEX Qty: 6 0RF Rx Instructions: For 250 mg dose pack: take 500 mg today (day 1), then 250 mg for 4 days (days 2-5) No Action mirtazapine 15 mg tablet 30 mg PO DAILY 0RF albuterol sulfate 90 mcg/actuation HFA aerosol inhaler 2 puff INHALATION Q6H PRN (Reason: Shortness Of Breath) 0RF omeprazole 20 mg capsule,delayed release(DR/EC) 40 mg PO DAILY 0RF diphenhydramine HCl [Benadryl] 25 mg capsule 75 mg PO BEDTIME 0RF levothyroxine 200 mcg Tablet 200 mcg PO DAILY 0RF gabapentin 100 mg Capsule 200 mg PO TID 0RF ondansetron 4 mg tablet,disintegrating 4 mg PO TID-QID PRN (Reason: nausea and vomiting) Qty: 10 0RF Referrals: Taylor Lassiter [Primary Care Provider] -
[2021-09-18 21:09] LABS: Troponin I < 0.012 ng/mL (0.01-0.034)
[2021-09-18] MEDS: ASPIRIN 81 MG CHEW TAB 324 MG PO (21:25)
[2021-09-18] MEDS: NITROGLYCERIN 0.4 MG SL TAB SL ×3 (21:25→21:53)
[2021-09-18 21:37] LABS: COVID19 -Nasal RAPID Negative (Negative)
[2021-09-18 21:51] LABS: NT-proBNP (BNP-Adult 18+) 64 pg/mL (<125)
[2021-09-18 23:30] LABS: Troponin I < 0.012 ng/mL (0.01-0.034)
--- NOTE | 2021-09-18 23:44 | DI.CT.S_ITS ---
PROCEDURE: CT ANGIO CHEST PE PROTOCOL INDICATIONS: chest pain TECHNIQUE: After the administration of intravenous contrast, 2 mm thick sections acquired from the pulmonary apices to the posterior costophrenic angles. 3-dimensional maximum intensity projection (MIP) coronal and sagittal reformats were then acquired through the thorax. For radiation dose reduction, the following was used: automated exposure control, adjustment of mA and/or kV according to patient size. COMPARISON: [facility], CT, CT ANGIO CHEST PE PROTOCOL, 07/11/2020, 11:35. FINDINGS: Image quality: Suboptimal due to poor bolus timing and other technical factors.. Pulmonary arteries: Pulmonary arteries are normal in size. Main right left pulmonary arteries are free of thrombus, however the technical quality of the study is inadequate to exclude thrombus in a branch artery. Lungs and pleura: Bilateral lower lobe bronchial wall thickening. No dense consolidations. No pleural effusions or pneumothorax. Central and peripheral airways are patent. Mediastinum: Heart size is normal, without pericardial effusion. Mild to moderate coronary artery calcification. No mediastinal or hilar adenopathy. Thoracic aorta is normal in caliber and enhancement. Esophagus is normal in caliber, with a small hiatal hernia. Bones and chest wall: No suspicious bony lesions. Ribs and thoracic spine appear intact throughout. Thyroid gland is diminutive. No axillary or supraclavicular adenopathy. Abdomen: Visualized upper abdominal solid organs appear normal in the early arterial phase of enhancement. IMPRESSION: 1. Due to suboptimal bolus timing and other technical factors, the study is nondiagnostic for excluding peripheral pulmonary embolus. 2. No secondary signs to suggest embolus such as right heart strain or pulmonary parenchymal opacity. 3. Mild bilateral lower lobe bronchial wall thickening suggesting bronchitis. Dictated by: Analisa Duarte M.D. on 09/19/2021 at 1:20 Approved by: Analisa Duarte M.D. on 09/19/2021 at 1:25
[2021-09-19] VITALS: PULSE 69; RESP 10; O2SAT 98
[2021-09-19 00:01] VITALS: BP 148/83; PULSE 69; RESP 12; O2SAT 98
[2021-09-19 00:30] VITALS: PULSE 72; RESP 10; O2SAT 99
[2021-09-19 01:00] VITALS: PULSE 68; RESP 11; O2SAT 96
[2021-09-19 01:30] VITALS: PULSE 67; RESP 12; O2SAT 96
[2021-09-19 02:00] VITALS: BP 140/80; PULSE 71; RESP 16; O2SAT 96
[2021-09-19] MEDS: AZITHROMYCIN 250 MG TABLET 500 MG PO (02:01)
[2021-09-19] MEDS: methylPREDNISolone 125 MG/2 ML VIAL IV (02:01)
== END 2021-09-19 02:26 | disposition home or self-care (01) ==
PROVIDERS: Emergency Provider Emergency Medicine; Family Provider Nurse Practitioner Family; PCP Family Medicine
DX: J40 Bronchitis, not specified as acute or chronic (principal); R07.89 Other chest pain; Z88.6 Allergy status to analgesic agent; Z88.1 Allergy status to other antibiotic agents; Z88.0 Allergy status to penicillin; Z88.2 Allergy status to sulfonamides; Z20.822 Contact with and (suspected) exposure to COVID-19
CPT/HCPCS: 36415; 71045; 71275; 80053; 82550; 83690; 83735; 83880; 84484; 85025; 87635; 93005; 93010; 96374; 99284; C9803; J2930; Q9967

== ENCOUNTER 2021-09-23 21:53 | Emergency (ER) | payer OTHER, SELFPAY ==
[2020-07-10 22:05] VITALS: BMI 56.5
[2021-09-23 21:57] VITALS: BP 206/95; PULSE 83; O2SAT 98
[2021-09-23 21:59] VITALS: BP 206/95; PULSE 79; RESP 24; TEMP 36.3; O2SAT 99
--- NOTE | 2021-09-23 21:59 | DI.RAD.S_ITS ---
PROCEDURE: XR CHEST 1V INDICATIONS: chest pain TECHNIQUE: One view of the chest was acquired. COMPARISON: [facility], CR, XR CHEST 1V, 09/18/2021, 20:34. FINDINGS: Surgical changes and devices: None. Lungs and pleura: There is an indistinct ground-glass opacity peripherally within the right lung base as well as increased right infrahilar opacities medially. No pleural effusions or pneumothorax. Mediastinum: Mediastinal contours appear unchanged. Heart size is normal. Bones and chest wall: No suspicious bony lesions. Overlying soft tissues appear unremarkable. IMPRESSION: 1. Right basilar opacities suggestive of pneumonia, versus atelectasis. Dictated by: Dutch Patterson M.D. on 09/23/2021 at 22:13 Approved by: Dutch Patterson M.D. on 09/23/2021 at 22:16
--- NOTE | 2021-09-23 22:17 | ED_ITS ---
HPI - Chest Pain General Chief Complaint: Chest Pain Stated Complaint: chest pain, sob Time Seen by Provider: 09/23/21 21:55 Source: patient Mode of arrival: Ambulatory History of Present Illness HPI narrative: Patient is a 61-year-old female. Was seen here in the emergency department approximately 5 days ago for the same symptoms and brings her to the emergency department today. She was diagnosed with bronchitis and atypical chest pain. Was sent home with steroids and antibiotics. States she has completed the course of these. Since she was discharged the symptoms improved but never completely went away. Yesterday afternoon the symptoms started to come back again in a been consistent since yesterday. She states it feels like there is a ton of bricks on her chest. She does not have the left arm discomfort. No fevers. Is having some cough. Related Data Home Medications Medication Instructions Recorded Confirmed albuterol sulfate 90 mcg/actuation 2 puff INHALATION Q6H PRN 04/23/20 07/10/20 aerosol inhaler diphenhydramine HCl 25 mg capsule 75 mg PO BEDTIME 04/23/20 07/10/20 (Benadryl) mirtazapine 15 mg tablet 30 mg PO DAILY 04/23/20 07/10/20 omeprazole 20 mg capsule,delayed 40 mg PO DAILY 04/23/20 07/10/20 release gabapentin 100 mg capsule 200 mg PO TID 07/10/20 07/10/20 levothyroxine 200 mcg tablet 200 mcg PO DAILY 07/10/20 07/10/20 Previous Rx's Medication Instructions Recorded ondansetron 4 mg disintegrating 4 mg PO TID-QID PRN #10 tab 04/30/21 tablet azithromycin 250 mg tablet See Rx Instructions .ROUTE 09/19/21 .COMPLEX #6 tab prednisone 50 mg tablet 50 mg PO DAILY #5 tab 09/19/21 Allergies Allergy/AdvReac Type Severity Reaction Status Date / Time acetaminophen [ACETAMINOPHEN] Allergy Intermediate RASH Verified 04/30/21 15:51 nitrofurantoin Allergy Intermediate RASH Verified 04/30/21 15:51 [From MACROBID] Penicillins [PENICILLINS] Allergy Intermediate RASH Verified 04/30/21 15:51 phenylpropanolamine Allergy Intermediate RASH/STOMACH Verified 04/30/21 15:51 [From TETRA] ACHE sulfamethoxazole Allergy Intermediate RASH/STOMACH Verified 04/30/21 15:51 [From SEPTRA] CRAMPS trimethoprim [From ] Allergy Intermediate RASH/STOMACH Verified 04/30/21 15:51 CRAMPS Review of Systems Constitutional Constitutional: Denies fever(s) and Denies headache(s) ENT Ears, Nose, Mouth, and Throat: Reports system reviewed and no additional complaints, except as documented and Denies headache(s) Cardiovascular Cardiovascular: Reports as per HPI and Reports system reviewed and no additional complaints, except as documented Respiratory Respiratory: Reports as per HPI and Reports system reviewed and no additional complaints, except as documented Gastrointestinal Gastrointestinal: Reports system reviewed and no additional complaints, except as documented Integumentary/Breasts Skin/Breast: Reports system reviewed and no additional complaints, except as documented Neurologic Neurologic: Denies headache(s) Hematologic/Lymphatic On Anticoagulants: No Patient History Medical History (Updated 09/24/21 @ 00:57 by Kash Mcgrath DO) Asthma Chronic fatigue Depression Fibromyalgia Hypothyroid Surgical History Status post cholecystectomy Family History Father Heart disease Mother Heart disease Social History marital status: household members: spouse Smoking Status: Never smoker alcohol intake: never Smoking Status: Never smoker Substance Use Type: does not use Exam Initial Vital Signs Initial Vital Signs: Vital Signs Temperature 97.4 F L 09/23/21 21:59 Pulse Rate 79 09/23/21 21:59 Respiratory Rate 24 09/23/21 21:59 Blood Pressure 206/95 H 09/23/21 21:59 Pulse Oximetry 99 09/23/21 21:59 HENMT Head: normal to inspection and normocephalic Resp Effort & Inspection: normal respiratory effort Auscultation: clear to auscultation bilaterally Cardio Rate: regular rate Rhythm: regular rhythm GI Inspection: non-distended Palpation: soft Skin General: no rashes or lesions noted Neuro General: patient alert, patient awake, patient oriented x3 and moves all extremities Extrem General: normal to inspection and capillary refill normal Psych Appearance: grossly normal and well kempt Scores HEART Score Heart Score history: Slightly Suspicious Heart Score EKG: Non-Specific repolarization disturbance Heart Score Age: 45-64 years old Heart Score risk factors: 1-2 risk factors Heart Score troponin: < or = to normal limit Heart Score Total: 3 Course Orders Ordered: ED Orders 09/23/21 21:59 XR chest 1V Stat EKG-12 Lead Stat 09/23/21 22:10 Complete Blood Count AUTO DIFF Stat Comprehensive Metabolic Panel Stat Lipase Stat Magnesium Stat NT-proBNP (BNP-Adult 18+) Stat Procalcitonin Stat Thyroid Stimulating Hormone Stat Troponin & CK Cardiac Panel Stat 09/23/21 22:37 COVID19 -Nasal swab/Pre-Proc Stat 09/23/21 23:53 Troponin I Stat Vital Signs Vital signs: Vital Signs - 8 hr 09/23/21 21:59 Temperature 97.4 F L Pulse Rate 79 Respiratory Rate 24 Blood Pressure 206/95 H Pulse Oximetry 99 MDM - Chest Pain Medical Records Data Attestation: I reviewed the patient's medical records. Lab Data Attestation: I reviewed the patient's lab results. Result diagrams: 09/23/21 22:10 09/23/21 22:10 Labs: Lab Results 09/23/21 09/23/21 09/23/21 Range/Units 22:10 22:10 22:10 WBC 16.1 H (4.5-11.0) X10^3/uL RBC 4.63 (4.0-5.2) X10^6/uL Hgb 12.3 (12.0-16.0) g/dL Hct 38.6 (36-46) % MCV 83.3 (80-100) fL MCH 26.6 (26-34) PG MCHC 32.0 (30-36) % RDW 16.4 H (11.6-14.8) % Plt Count 414 H (150-400) X10^3/uL Neut % (Auto) 64.3 (50-75) % Lymph % (Auto) 27.2 (25-40) % [place] % (Auto) 6.1 (3-14) % Eos % (Auto) 1.7 L (2-4) % Baso % (Auto) 0.7 (0-2) % Neut # (Auto) 73165 H (0030-9235) /uL Lymph # (Auto) 4400 (2938-4478) /uL [place] # (Auto) 1000 H (0-900) /uL Eos # (Auto) 300 (0-450) /uL Baso # (Auto) 100 (0-100) /uL Sodium 138 (137-145) mmol/L Potassium 4.0 (3.4-5.1) mmol/L Chloride 104 (98-107) mmol/L Carbon Dioxide 30 (22-32) mmol/L BUN 22 H (7-17) mg/dL Creatinine 0.84 (0.52-1.04) mg/dL Estimated GFR > 60.0 (>60) mL/min BUN/Creatinine Ratio 26.2 H (6-22) Glucose 115 H (80-110) mg/dL Calcium 8.6 (8.4-10.2) mg/dL Magnesium 2.2 (1.6-2.3) mg/dL Total Bilirubin 0.4 (0.2-1.3) mg/dL AST 44 H (14-36) IU/L ALT 38 H (<35) IU/L Alkaline Phosphatase 158 H (38-126) U/L Total Creatine Kinase < 20 L (30-135) U/L CK-MB (CK-2) TNP CK-MB (CK-2) Rel Index TNP Troponin I < 0.012 (0.01-0.034) ng/mL NT-Pro-B Natriuret Pep 584 H (<125) pg/mL Total Protein 7.0 (6.3-8.2) g/dL Albumin 3.8 (3.5-5.0) g/dL Globulin 3.2 (1.7-4.1) g/dL Albumin/Globulin Ratio 1.2 (1.0-2.8) Lipase 84 (23-300) U/L Procalcitonin 0.04 (<0.5) ng/mL TSH 5.61 H (0.47-4.68) uIU/mL SARS-CoV-2 (PCR) (Negative) 09/23/21 09/24/21 Range/Units 22:37 00:07 WBC (4.5-11.0) X10^3/uL RBC (4.0-5.2) X10^6/uL Hgb (12.0-16.0) g/dL Hct (36-46) % MCV (80-100) fL MCH (26-34) PG MCHC (30-36) % RDW (11.6-14.8) % Plt Count (150-400) X10^3/uL Neut % (Auto) (50-75) % Lymph % (Auto) (25-40) % [place] % (Auto) (3-14) % Eos % (Auto) (2-4) % Baso % (Auto) (0-2) % Neut # (Auto) (4173-6326) /uL Lymph # (Auto) (7357-3469) /uL [place] # (Auto) (0-900) /uL Eos # (Auto) (0-450) /uL Baso # (Auto) (0-100) /uL Sodium (137-145) mmol/L Potassium (3.4-5.1) mmol/L Chloride (98-107) mmol/L Carbon Dioxide (22-32) mmol/L BUN (7-17) mg/dL Creatinine (0.52-1.04) mg/dL Estimated GFR (>60) mL/min BUN/Creatinine Ratio (6-22) Glucose (80-110) mg/dL Calcium (8.4-10.2) mg/dL Magnesium (1.6-2.3) mg/dL Total Bilirubin (0.2-1.3) mg/dL AST (14-36) IU/L ALT (<35) IU/L Alkaline Phosphatase (38-126) U/L Total Creatine Kinase (30-135) U/L CK-MB (CK-2) CK-MB (CK-2) Rel Index Troponin I < 0.012 (0.01-0.034) ng/mL NT-Pro-B Natriuret Pep (<125) pg/mL Total Protein (6.3-8.2) g/dL Albumin (3.5-5.0) g/dL Globulin (1.7-4.1) g/dL Albumin/Globulin Ratio (1.0-2.8) Lipase (23-300) U/L Procalcitonin (<0.5) ng/mL TSH (0.47-4.68) uIU/mL SARS-CoV-2 (PCR) Negative (Negative) Imaging Data Chest x-ray: My Impression: [address] [address] XRay Report Signed Patient: Maine Avila MR#: [id number] : 1960 Acct:[id number] Age/Sex: 61 / F Date of Service: 09/23/21 Loc: ED Accession Number: [id number] ?? Procedure: XR chest 1V Ordering Provider: Kash Mcgrath D.O. PROCEDURE:? XR CHEST 1V ? INDICATIONS:? chest pain ? TECHNIQUE:? One view of the chest was acquired.? ? COMPARISON:? [facility], , XR CHEST 1V, 09/18/2021, 20:34. ? FINDINGS:? ? Surgical changes and devices:? None.? ? Lungs and pleura:? There is an indistinct ground-glass opacity peripherally within the right lung base as well as increased right infrahilar opacities medially.? No pleural effusions or pneumothorax.? ? Mediastinum:? Mediastinal contours appear unchanged.? Heart size is normal.? ? Bones and chest wall:? No suspicious bony lesions.? Overlying soft tissues appear unremarkable.? ? IMPRESSION:? ? 1. Right basilar opacities suggestive of pneumonia, versus atelectasis.? ? ? Dictated by: Dutch Patterson M.D. on 09/23/2021 at 22:13 ? ? Approved by: Dutch Patterson M.D. on 09/23/2021 at 22:16?? ECG Data Attestation: I personally reviewed and interpreted this ECG as follows: Prior ECG tracings: available for review Interpretation: Sinus rhythm Ventricular rate is 73 Normal axis Normal QRS Normal QTC ST T wave changes MDM Narrative Medical decision making narrative: EKG today is unchanged from prior. She does have reproducible chest pain that is been consistent since yesterday she is afebrile. Does have a leukocytosis but also has been on steroids for the past 5 days. I do have low suspicion for pneumonia. Patient had a fairly extensive workup on Tuesday of last week. Plan to be is to have the patient follow-up with her primary doctor. We did discuss taking her blood pressure at home. We discussed return precautions and follow- up instructions. She expressed understanding and agreement. Discharge Plan Departure Patient Disposition: Home Clinical Impression: Atypical chest pain, Hypertension Instructions: Essential Hypertension Activity Restrictions/Additional Instructions: Continue to take all of your medications as directed. I do recommend that you take your blood pressure at home like we discussed. Keep your scheduled medical appointments. Return to the emergency department for any new or worsening symptoms. Prescriptions: No Action mirtazapine 15 mg tablet 30 mg PO DAILY 0RF albuterol sulfate 90 mcg/actuation HFA aerosol inhaler 2 puff INHALATION Q6H PRN (Reason: Shortness Of Breath) 0RF omeprazole 20 mg capsule,delayed release(DR/EC) 40 mg PO DAILY 0RF diphenhydramine HCl [Benadryl] 25 mg capsule 75 mg PO BEDTIME 0RF prednisone 50 mg tablet 50 mg PO DAILY Qty: 5 0RF azithromycin 250 mg tablet See Rx Instructions .ROUTE .COMPLEX Qty: 6 0RF Rx Instructions: For 250 mg dose pack: take 500 mg today (day 1), then 250 mg for 4 days (days 2-5) levothyroxine 200 mcg Tablet 200 mcg PO DAILY 0RF gabapentin 100 mg Capsule 200 mg PO TID 0RF ondansetron 4 mg tablet,disintegrating 4 mg PO TID-QID PRN (Reason: nausea and vomiting) Qty: 10 0RF Referrals: Taylor Lassiter [Primary Care Provider] -
[2021-09-23 22:28] LABS: Add Manual Diff / Slide Review NO; Basophils Absolute Auto 100 /uL (0-100); Basophils Percent Auto 0.7 % (0-2); Eosinophils Absolute Auto 300 /uL (0-450); Eosinophils Percent Auto 1.7 % (2-4); Hematocrit 38.6 % (36-46); Hemoglobin 12.3 g/dL (12.0-16.0); Lymphocytes Absolute Auto 4400 /uL (1100-4500); Lymphocytes Percent Auto 27.2 % (25-40); Mean Corpuscular Hemoglobin 26.6 PG (26-34); Mean Corpuscular Volume 83.3 fL (80-100); Monocytes Absolute Auto 1000 /uL (0-900); Monocytes Percent Auto 6.1 % (3-14); Neutrophils Absolute Auto 10400 /uL (1500-7000); Neutrophils Percent Auto 64.3 % (50-75); Platelet Count 414 X10^3/uL (150-400); Red Blood Cell Count 4.63 X10^6/uL (4.0-5.2); Red Cell Distribution Width 16.4 % (11.6-14.8); White Blood Cell Count 16.1 X10^3/uL (4.5-11.0)
[2021-09-23 22:39] LABS: Alanine Aminotransferase 38 IU/L (<35); Albumin 3.8 g/dL (3.5-5.0); Albumin Globulin Ratio 1.2 (1.0-2.8); Alkaline Phosphatase 158 U/L (38-126); Aspartate Aminotransferase 44 IU/L (14-36); BUN Creatinine Ratio 26.2 (6-22); Bilirubin Total 0.4 mg/dL (0.2-1.3); Blood Urea Nitrogen 22 mg/dL (7-17); Calcium 8.6 mg/dL (8.4-10.2); Carbon Dioxide 30 mmol/L (22-32); Chloride 104 mmol/L (98-107); Creatine Kinase < 20 U/L (30-135); Estimated Glomerular Filt Rate > 60.0 mL/min (>60); Globulin 3.2 g/dL (1.7-4.1); Glucose 115 mg/dL (80-110); HEMOLYSIS 28 (0-50); Lipase 84 U/L (23-300); Magnesium 2.2 mg/dL (1.6-2.3); Sodium 138 mmol/L (137-145)
[2021-09-23 22:41] VITALS: PULSE 68
[2021-09-23 22:51] LABS: NT-proBNP (BNP-Adult 18+) 584 pg/mL (<125); Troponin I < 0.012 ng/mL (0.01-0.034)
[2021-09-23 22:56] LABS: Procalcitonin 0.04 ng/mL (<0.5)
[2021-09-23 23:00] VITALS: PULSE 67; RESP 11; O2SAT 96
[2021-09-23 23:15] LABS: COVID19 -Nasal RAPID Negative (Negative)
[2021-09-23 23:16] LABS: Thyroid Stimulating Hormone 5.61 uIU/mL (0.47-4.68)
[2021-09-23 23:30] VITALS: PULSE 68; RESP 10; O2SAT 96
[2021-09-24] VITALS: PULSE 65; RESP 14; O2SAT 97
[2021-09-24 00:09] VITALS: BP 191/81; PULSE 70; RESP 16; O2SAT 97
[2021-09-24 00:30] VITALS: PULSE 67; RESP 9; O2SAT 97
[2021-09-24 00:43] LABS: Troponin I < 0.012 ng/mL (0.01-0.034)
== END 2021-09-24 01:10 | disposition home or self-care (01) ==
PROVIDERS: Emergency Provider Emergency Medicine; Family Provider Nurse Practitioner Family; PCP Family Medicine
DX: R07.89 Other chest pain (principal); I10 Essential (primary) hypertension; Z20.822 Contact with and (suspected) exposure to COVID-19
CPT/HCPCS: 36415; 71045; 80053; 82550; 83690; 83735; 83880; 84145; 84443; 84484; 85025; 87635; 93005; 99283; 99284; C9803

== ENCOUNTER → 2021-10-13 11:37 | Outpatient (CLI) | payer OTHER, SELFPAY ==
[2020-07-10 22:05] VITALS: BMI 56.5
[2021-10-13 13:43] LABS: COVID-19 CEPHEID PCR (VTM/NP) Negative (Negative)
== END ==
PROVIDERS: Family Provider Nurse Practitioner Family; PCP Family Medicine; Referring Provider Student in an Organized Health Care Education/Training Program; Visit Provider Student in an Organized Health Care Education/Training Program
DX: Z20.822 Contact with and (suspected) exposure to COVID-19 (principal)
CPT/HCPCS: U0003

== ENCOUNTER 2021-11-14 13:10 | Emergency (ER) | payer OTHER, SELFPAY ==
[2020-07-10 22:05] VITALS: BMI 56.5
[2021-11-14 13:42] VITALS: BP 178/87; PULSE 80; RESP 20; TEMP 36.5; O2SAT 96; BMI 53.2
[2021-11-14 14:27] LABS: Ictotest Urine Negative (Negative)
[2021-11-14 14:55] LABS: WBC Urine 0-1/HPF (0-5/HPF)
[2021-11-14 14:56] LABS: Bacteria Urine None Seen; RBC Urine 1-5/HPF (0-5/HPF); Squamous Epithelial Cell Urine 0-1 /HPF (0-5/HPF)
[2021-11-14 14:57] LABS: Culture Indicated Urine Specimen Cultured
--- NOTE | 2021-11-14 15:57 | ED_ITS ---
HPI - Female Genitourinary General Chief complaint: Urogenital-Female Stated complaint: r/o UTI, severe stomach pain and lower back pain Time Seen by Provider: 11/14/21 15:51 Source: patient Mode of arrival: Ambulatory History of Present Illness HPI Narrative: Patient is a 61-year-old female history of fibromyalgia, temporal arteritis cur rently on prednisone presenting today with increased left lower quadrant pain and flank pain. It has been ongoing for last 4 days. She thought maybe a bladder infection but denies any painful or frequent urination. She did take an azo which she says helps with pain. She has taken naproxen for pain without any relief. She did as fever chills nausea or vomiting Related Data Home Medications Medication Instructions Recorded Confirmed albuterol sulfate 90 mcg/actuation 2 puff INHALATION Q6H PRN 04/23/20 07/10/20 aerosol inhaler diphenhydramine HCl 25 mg capsule 75 mg PO BEDTIME 04/23/20 07/10/20 (Benadryl) mirtazapine 15 mg tablet 30 mg PO DAILY 04/23/20 07/10/20 omeprazole 20 mg capsule,delayed 40 mg PO DAILY 04/23/20 07/10/20 release gabapentin 100 mg capsule 200 mg PO TID 07/10/20 07/10/20 levothyroxine 200 mcg tablet 200 mcg PO DAILY 07/10/20 07/10/20 Previous Rx's Medication Instructions Recorded ondansetron 4 mg disintegrating 4 mg PO TID-QID PRN #10 tab 04/30/21 tablet azithromycin 250 mg tablet See Rx Instructions .ROUTE 09/19/21 .COMPLEX #6 tab prednisone 50 mg tablet 50 mg PO DAILY #5 tab 09/19/21 ciprofloxacin HCl 500 mg tablet 500 mg PO BID #14 tab 11/14/21 (Cipro) Allergies Allergy/AdvReac Type Severity Reaction Status Date / Time acetaminophen [ACETAMINOPHEN] Allergy Intermediate RASH Verified 11/14/21 14:55 nitrofurantoin Allergy Intermediate RASH Verified 11/14/21 14:55 [From MACROBID] Penicillins [PENICILLINS] Allergy Intermediate RASH Verified 11/14/21 14:55 phenylpropanolamine Allergy Intermediate RASH/STOMACH Verified 11/14/21 14:55 [From TETRA] ACHE sulfamethoxazole Allergy Intermediate RASH/STOMACH Verified 11/14/21 14:55 [From SEPTRA] CRAMPS trimethoprim [From ] Allergy Intermediate RASH/STOMACH Verified 11/14/21 14:55 CRAMPS Review of Systems Review of Systems Narrative: GENERAL: Denies chills, fatigue, malaise, fever, sweats, travel HEENT: Denies sinus pain, ear pain, sore throat, difficulty swallowing, neck pain RESPIRATORY: Denies dyspnea, cough, wheezing, hemoptysis, sputum. CARDIOVASCULAR: Denies chest pain, palpitations, orthopnea, edema GASTROINTESTINAL: See HPI : Denies dysuria, frequency, incontinence, hematuria, urinary retention, flank pain. MUSCULOSKELETAL: Denies weakness, joint pain, or bony pain SKIN: No rash, no erythema, no pruritus NEUROLOGIC: Denies weakness, dizziness, headache, numbness, change in speech, confusion PSYCHIATRIC: No concerning psychosocial issues. 12 point review of systems is negative except for those stated above and HPI Patient History Medical History (Updated 11/14/21 @ 18:57 by Radha Hankins DO) Asthma Chronic fatigue Depression Fibromyalgia Hypothyroid Surgical History Status post cholecystectomy Family History Father Heart disease Mother Heart disease alcohol intake frequency: 0-2 drinks per day Substance Use Type: does not use Exam Initial Vital Signs Initial Vital Signs: Vital Signs Temperature 97.7 F 11/14/21 13:42 Pulse Rate 80 11/14/21 13:42 Respiratory Rate 20 11/14/21 13:42 Blood Pressure 178/87 H 11/14/21 13:42 Pulse Oximetry 96 11/14/21 13:42 GENERAL: Alert 61-year-old female BMI 53 HEENT: Head atraumatic,EOMI, pupils reactive, face symmetric, moist mucous membranes CARDIOVASCULAR: Regular rate and rhythm without murmurs, rubs or gallops. RESPIRATORY: Breath sounds equal bilaterally, no wheezes rales or rhonchi. ABDOMEN: Soft, left lower quadrant pain mild epigastric pain negative Swanson sign no right-sided pain : Mild left CVA tenderness EXTREMITIES: Normal range of motion, no clubbing or edema. Neurovascularly intact NEUROLOGICAL: Alert and oriented x4.Normal gait and speech. SKIN: Warm, dry, no laceration, no petechiae, no rashes or lesions. Course Orders Ordered: ED Orders 11/14/21 13:51 Ictotest Urine Stat Urine Culture Stat Urine Microscopic Stat 11/14/21 16:07 CT abdomen pelvis w con Stat 11/14/21 16:30 Complete Blood Count AUTO DIFF Stat Comprehensive Metabolic Panel Stat Lipase Stat Discontinued Medications Levofloxacin (Levofloxacin 250 Mg Tablet) 500 mg PO NOW ONE Stop: 11/14/21 18:54 Last Admin: 11/14/21 19:07 Dose: 500 mg Documented by: ATAYLOR Vital Signs Vital signs: Vital Signs - 8 hr 11/14/21 13:42 11/14/21 16:33 11/14/21 19:14 Temperature 97.7 F Pulse Rate 80 67 65 Respiratory Rate 20 18 18 Blood Pressure 178/87 H 199/88 H 207/82 H Pulse Oximetry 96 99 99 MDM - Female Genitourinary Lab Data Result diagrams: 11/14/21 16:30 11/14/21 16:30 Labs: Lab Results 11/14/21 11/14/21 11/14/21 Range/Units 13:51 13:51 16:30 WBC 8.6 (4.5-11.0) X10^3/uL RBC 4.48 (4.0-5.2) X10^6/uL Hgb 12.1 (12.0-16.0) g/dL Hct 37.1 (36-46) % MCV 83.0 (80-100) fL MCH 27.1 (26-34) PG MCHC 32.6 (30-36) % RDW 15.8 H (11.6-14.8) % Plt Count 214 (150-400) X10^3/uL Neut % (Auto) 71.8 (50-75) % Lymph % (Auto) 18.1 L (25-40) % [place] % (Auto) 4.8 (3-14) % Eos % (Auto) 2.0 (2-4) % Baso % (Auto) 3.3 H (0-2) % Neut # (Auto) 6200 (4657-9086) /uL Lymph # (Auto) 1500 (6307-6916) /uL [place] # (Auto) 400 (0-900) /uL Eos # (Auto) 200 (0-450) /uL Baso # (Auto) 300 H (0-100) /uL Sodium (137-145) mmol/L Potassium (3.4-5.1) mmol/L Chloride (98-107) mmol/L Carbon Dioxide (22-32) mmol/L BUN (7-17) mg/dL Creatinine (0.52-1.04) mg/dL Estimated GFR (>60) mL/min BUN/Creatinine Ratio (6-22) Glucose (80-110) mg/dL Calcium (8.4-10.2) mg/dL Total Bilirubin (0.2-1.3) mg/dL AST (14-36) IU/L ALT (<35) IU/L Alkaline Phosphatase (38-126) U/L Total Protein (6.3-8.2) g/dL Albumin (3.5-5.0) g/dL Globulin (1.7-4.1) g/dL Albumin/Globulin Ratio (1.0-2.8) Lipase (23-300) U/L Ur Bilirubin Confirm Negative (Negative) Urine RBC 1-5/hpf (0-5/HPF) Urine WBC 0-1/hpf (0-5/HPF) Ur Squamous Epith Cells 0-1 /hpf (0-5/HPF) Urine Bacteria None seen (None) Ur Culture Indicated? Specimen cultured 11/14/21 Range/Units 16:30 WBC (4.5-11.0) X10^3/uL RBC (4.0-5.2) X10^6/uL Hgb (12.0-16.0) g/dL Hct (36-46) % MCV (80-100) fL MCH (26-34) PG MCHC (30-36) % RDW (11.6-14.8) % Plt Count (150-400) X10^3/uL Neut % (Auto) (50-75) % Lymph % (Auto) (25-40) % [place] % (Auto) (3-14) % Eos % (Auto) (2-4) % Baso % (Auto) (0-2) % Neut # (Auto) (9294-7626) /uL Lymph # (Auto) (3152-9979) /uL [place] # (Auto) (0-900) /uL Eos # (Auto) (0-450) /uL Baso # (Auto) (0-100) /uL Sodium 139 (137-145) mmol/L Potassium 3.7 (3.4-5.1) mmol/L Chloride 104 (98-107) mmol/L Carbon Dioxide 30 (22-32) mmol/L BUN 15 (7-17) mg/dL Creatinine 0.75 (0.52-1.04) mg/dL Estimated GFR > 60.0 (>60) mL/min BUN/Creatinine Ratio 20.0 (6-22) Glucose 101 (80-110) mg/dL Calcium 9.2 (8.4-10.2) mg/dL Total Bilirubin 0.5 (0.2-1.3) mg/dL AST 24 (14-36) IU/L ALT 35 H (<35) IU/L Alkaline Phosphatase 107 (38-126) U/L Total Protein 6.5 (6.3-8.2) g/dL Albumin 3.6 (3.5-5.0) g/dL Globulin 2.9 (1.7-4.1) g/dL Albumin/Globulin Ratio 1.2 (1.0-2.8) Lipase 60 (23-300) U/L Ur Bilirubin Confirm (Negative) Urine RBC (0-5/HPF) Urine WBC (0-5/HPF) Ur Squamous Epith Cells (0-5/HPF) Urine Bacteria (None) Ur Culture Indicated? Point of Care Testing Test Results Negative Urine Dip Bedside Urine Glucose Negative Bedside Urine Bilirubin ++ 2 Bedside Urine Ketone - Negative Urine Specific [place] 1.015 Bedside Urine Occult Blood +/- Bedside Urine pH 5.0 Bedside Urine Protein - Negative Bedside Urine Urobilinogen 2+ 4mg Bedside Urine Nitrite + Positive Bedside Urine Leukocytes + [address] scan - abdomen/pelvis: Radiologist's Impression: PROCEDURE:? CT ABDOMEN PELVIS W CON ? INDICATIONS:? LLQ pain and left flank pain ? TECHNIQUE:? After the administration of IV contrast, axial sections were acquired from the lung bases to the pubic symphysis.? Coronal and sagittal reformats were performed.? For radiation dose reduction, the following was used:? automated exposure control, adjustment of mA and/or kV according to patient size. ? COMPARISON:? None. ? FINDINGS:? Image quality:? Excellent.? ? Lung bases:? Unremarkable.? ? Heart:? No significant findings. ? ABDOMEN: Liver:? No masses Gallbladder:? Surgically absent. Biliary ducts:? Nondilated. Pancreas:? Normal. Spleen:? Normal size.? Scattered punctate calcifications. Adrenal Glands:? No nodules. Kidneys and Ureters:? Normal enhancement.? No hydronephrosis or hydroureter.? No calcifications. Stomach and Bowel:? Increased quantity of solid stool present.? Normal appendix.? Decompressed stomach and small bowel.? No evidence of obstruction or inflammation. Peritoneum:? No abnormal intraperitoneal fluid.? No free air.? ? Ventral Wall: ? No hernia.? Abdominal Nodes:? No retroperitoneal or mesenteric adenopathy by size criteria.? Vessels:? Aorta and inferior vena cava are normal in size.? ? PELVIS: Pelvic Organs:? 3.9 x 2.8 cm left adnexal mass arising from the left ovary.? No surrounding fluid or inflammation.? The right ovary is not seen.? The uterus is anteverted and is age-appropriate in size. Bladder:? Normal wall thickness. Pelvic Nodes: No enlarged lymph nodes.? Miscellaneous: No inguinal hernias are seen. ? ? ? Bones:? Unremarkable.? IMPRESSION:? ? 1. 3.9 cm left ovarian mass without surrounding inflammation.? No other explanation for left sided pain. ? 2. No evidence of urinary calcifications or obstructive uropathy.? ? ? Dictated by: Analisa Duarte M.D. on 11/14/2021 at 18:29 ? ? Approved by: Analisa Duarte M.D. on 11/14/2021 at 18:34 ? MDM Narrative Medical decision making narrative: Patient does have nitrites in her urine will treat her for UTI she has symptoms consistent with it. CT does show a 3.9 cm left ovarian mass. I have discussed this with patient she states that 35 years ago she had an ovarian cyst that got attached to her uterus. She has had no problems since she was never told different cancers or not. At this time her primary care is done at the [facility]. Discussed with her for need for urgent follow-up. She has multiple allergies to multiple medications. Will give her ciprofloxacin for UTI. Patient's blood pressure is noted to be significantly elevated while in the emergency department. I have discussed this with her she states that she knows her blood pressure is high. We discussed monitoring at home. She has no sign of end-organ damage at this time. Recommend she see her primary care provider about this. Discharge Plan Departure Patient Disposition: Home Clinical Impression: Urinary tract infection, Mass of left ovary Instructions: DI for Urinary Tract Infection (UTI) Activity Restrictions/Additional Instructions: *You have been diagnosed with bladder infection and ovarian *What to do: At this time you will need follow-up a possible biopsies of the left ovarian mass. Please be sure to call your primary care provider Tuesday. *Continue to take medications as directed Cipro 500 mg twice a day for 7 days--> SENT TO [facility] *Follow up with your primary care provider in 2-3 days or call [phone] *Return to ER if you should have increasing pain, confusion, or any new, worsening or concerning symptoms Prescriptions: New ciprofloxacin HCl [Cipro] 500 mg tablet 500 mg PO BID Qty: 14 0RF No Action mirtazapine 15 mg tablet 30 mg PO DAILY 0RF albuterol sulfate 90 mcg/actuation HFA aerosol inhaler 2 puff INHALATION Q6H PRN (Reason: Shortness Of Breath) 0RF omeprazole 20 mg capsule,delayed release(DR/EC) 40 mg PO DAILY 0RF diphenhydramine HCl [Benadryl] 25 mg capsule 75 mg PO BEDTIME 0RF prednisone 50 mg tablet 50 mg PO DAILY Qty: 5 0RF azithromycin 250 mg tablet See Rx Instructions .ROUTE .COMPLEX Qty: 6 0RF Rx Instructions: For 250 mg dose pack: take 500 mg today (day 1), then 250 mg for 4 days (days 2-5) levothyroxine 200 mcg Tablet 200 mcg PO DAILY 0RF gabapentin 100 mg Capsule 200 mg PO TID 0RF ondansetron 4 mg tablet,disintegrating 4 mg PO TID-QID PRN (Reason: nausea and vomiting) Qty: 10 0RF Referrals: [facility] [Provider Group] Taylor Lassiter [Primary Care Provider] -
--- NOTE | 2021-11-14 16:07 | DI.CT.S_ITS ---
PROCEDURE: CT ABDOMEN PELVIS W CON INDICATIONS: LLQ pain and left flank pain TECHNIQUE: After the administration of IV contrast, axial sections were acquired from the lung bases to the pubic symphysis. Coronal and sagittal reformats were performed. For radiation dose reduction, the following was used: automated exposure control, adjustment of mA and/or kV according to patient size. COMPARISON: None. FINDINGS: Image quality: Excellent. Lung bases: Unremarkable. Heart: No significant findings. ABDOMEN: Liver: No masses Gallbladder: Surgically absent. Biliary ducts: Nondilated. Pancreas: Normal. Spleen: Normal size. Scattered punctate calcifications. Adrenal Glands: No nodules. Kidneys and Ureters: Normal enhancement. No hydronephrosis or hydroureter. No calcifications. Stomach and Bowel: Increased quantity of solid stool present. Normal appendix. Decompressed stomach and small bowel. No evidence of obstruction or inflammation. Peritoneum: No abnormal intraperitoneal fluid. No free air. Ventral Wall: No hernia. Abdominal Nodes: No retroperitoneal or mesenteric adenopathy by size criteria. Vessels: Aorta and inferior vena cava are normal in size. PELVIS: Pelvic Organs: 3.9 x 2.8 cm left adnexal mass arising from the left ovary. No surrounding fluid or inflammation. The right ovary is not seen. The uterus is anteverted and is age-appropriate in size. Bladder: Normal wall thickness. Pelvic Nodes: No enlarged lymph nodes. Miscellaneous: No inguinal hernias are seen. Bones: Unremarkable. IMPRESSION: 1. 3.9 cm left ovarian mass without surrounding inflammation. No other explanation for left sided pain. 2. No evidence of urinary calcifications or obstructive uropathy. Dictated by: Analisa Duarte M.D. on 11/14/2021 at 18:29 Approved by: Analisa Duarte M.D. on 11/14/2021 at 18:34
[2021-11-14 16:33] VITALS: BP 199/88; PULSE 67; RESP 18; O2SAT 99
--- NOTE | 2021-11-14 16:35 | PC.NURSE ---
Pt reports recent high blood pressure readings she was instructed to monitor, says she is not currently on blood pressure medications, pt denies dizzines or chest pain.
[2021-11-14 17:01] LABS: Add Manual Diff / Slide Review NO; Basophils Absolute Auto 300 /uL (0-100); Basophils Percent Auto 3.3 % (0-2); Eosinophils Absolute Auto 200 /uL (0-450); Hematocrit 37.1 % (36-46); Hemoglobin 12.1 g/dL (12.0-16.0); Lymphocytes Absolute Auto 1500 /uL (1100-4500); Lymphocytes Percent Auto 18.1 % (25-40); Mean Corpuscular HGB Conc 32.6 % (30-36); Mean Corpuscular Hemoglobin 27.1 PG (26-34); Monocytes Absolute Auto 400 /uL (0-900); Monocytes Percent Auto 4.8 % (3-14); Neutrophils Absolute Auto 6200 /uL (1500-7000); Neutrophils Percent Auto 71.8 % (50-75); Platelet Count 214 X10^3/uL (150-400); Red Blood Cell Count 4.48 X10^6/uL (4.0-5.2); Red Cell Distribution Width 15.8 % (11.6-14.8); White Blood Cell Count 8.6 X10^3/uL (4.5-11.0)
[2021-11-14 17:05] LABS: Alanine Aminotransferase 35 IU/L (<35); Albumin 3.6 g/dL (3.5-5.0); Albumin Globulin Ratio 1.2 (1.0-2.8); Alkaline Phosphatase 107 U/L (38-126); Aspartate Aminotransferase 24 IU/L (14-36); Bilirubin Total 0.5 mg/dL (0.2-1.3); Blood Urea Nitrogen 15 mg/dL (7-17); Calcium 9.2 mg/dL (8.4-10.2); Carbon Dioxide 30 mmol/L (22-32); Chloride 104 mmol/L (98-107); Estimated Glomerular Filt Rate > 60.0 mL/min (>60); Globulin 2.9 g/dL (1.7-4.1); Glucose 101 mg/dL (80-110); HEMOLYSIS < 15 (0-50); Lipase 60 U/L (23-300); Potassium 3.7 mmol/L (3.4-5.1); Sodium 139 mmol/L (137-145); Total Protein 6.5 g/dL (6.3-8.2)
[2021-11-14] MEDS: levoFLOXacin 250 MG TABLET 500 MG PO (19:07)
[2021-11-14 19:14] VITALS: BP 207/82; PULSE 65; RESP 18; O2SAT 99
== END 2021-11-14 19:18 | disposition home or self-care (01) ==
PROVIDERS: Emergency Provider Emergency Medicine; Family Provider Nurse Practitioner Family; PCP Family Medicine
DX: N39.0 Urinary tract infection, site not specified (principal); N83.9 Noninflammatory disorder of ovary, fallopian tube and broad ligament, unspecified; Z88.1 Allergy status to other antibiotic agents; Z88.0 Allergy status to penicillin
CPT/HCPCS: 36415; 74177; 80053; 81003; 81015; 81025; 83690; 85025; 87077; 87086; 87186; 99284; Q9967

== ENCOUNTER 2022-04-30 05:41 | Emergency (ER) | payer OTHER, SELFPAY ==
[2020-07-10 22:05] VITALS: BMI 56.5
[2022-04-30 05:32] VITALS: BP 188/93; PULSE 94; RESP 21; TEMP 36.8; O2SAT 95; BMI 38.5
--- NOTE | 2022-04-30 05:32 | ED.CHESTPAIN ---
HPI - Chest Pain <Tima AkersDO chitra - Last Filed: 05/01/22 06:27> General Chief Complaint: Chest Pain Stated Complaint: chest pain Time Seen by Provider: 04/30/22 05:45 History of Present Illness HPI narrative: 62-year-old female nonsmoker with BMI of 38.6, history of reactive airway disease presents by EMS or evaluation of many days of upper respiratory symptoms including nasal congestion, runny nose, hacking cough that occasionally is productive of yellowish sputum and now a sharp and stabbing, reproducible right-sided chest pain with radiation into her shoulder. She states the chest pain is worse with deep breath, motion and cough. She denies exertional symptoms though she does admit to increasingly short of breath with exertion with increased fatigue. She denies GI symptoms such as nausea, vomiting, diarrhea. She has no dysuria, frequency or urgency. She denies fever or chills Related Data Home Medications Medication Instructions Recorded Confirmed albuterol sulfate 90 mcg/actuation 2 puff inhalation Q6H PRN 04/23/20 07/10/20 aerosol inhaler Shortness Of Breath diphenhydramine HCl 25 mg capsule 75 mg PO BEDTIME 04/23/20 07/10/20 (Benadryl) mirtazapine 15 mg tablet 30 mg PO DAILY 04/23/20 07/10/20 omeprazole 20 mg capsule,delayed 40 mg PO DAILY 04/23/20 07/10/20 release gabapentin 100 mg capsule 200 mg PO TID 07/10/20 07/10/20 levothyroxine 200 mcg tablet 200 mcg PO DAILY 07/10/20 07/10/20 Previous Rx's Medication Instructions Recorded ondansetron 4 mg disintegrating 4 mg PO TID-QID PRN nausea and 04/30/21 tablet vomiting #10 tabs azithromycin 250 mg tablet See Rx Instructions PO .COMPLEX #6 09/19/21 tabs prednisone 50 mg tablet 50 mg PO DAILY #5 tabs 09/19/21 ciprofloxacin HCl 500 mg tablet 500 mg PO BID #14 tabs 11/14/21 (Cipro) codeine 10 mg-guaifenesin 100 mg/5 10 ml PO Q6H PRN cough #120 mL 04/30/22 mL oral liquid Allergies Allergy/AdvReac Type Severity Reaction Status Date / Time acetaminophen [ACETAMINOPHEN] Allergy Intermediate RASH Verified 11/14/21 14:55 nitrofurantoin Allergy Intermediate RASH Verified 11/14/21 14:55 [From MACROBID] Penicillins [PENICILLINS] Allergy Intermediate RASH Verified 11/14/21 14:55 phenylpropanolamine Allergy Intermediate RASH/STOMACH Verified 11/14/21 14:55 [From TETRA] ACHE sulfamethoxazole Allergy Intermediate RASH/STOMACH Verified 11/14/21 14:55 [From SEPTRA] CRAMPS trimethoprim [From SEPTRA] Allergy Intermediate RASH/STOMACH Verified 11/14/21 14:55 CRAMPS Review of Systems <Tima Peter DO - Last Filed: 05/01/22 06:27> Review of Systems Narrative: GENERAL: See HPI HEENT: See HPI RESPIRATORY: See HPI CARDIOVASCULAR: See HPI GASTROINTESTINAL: Denies nausea, vomiting, abdominal pain, diarrhea, constipation, melena. : Denies dysuria, frequency, incontinence, hematuria, urinary retention. MUSCULOSKELETAL: denies weakness, joint pain, or bony pain SKIN: Denies rash, skin lesions, or other NEUROLOGIC: Denies weakness, headache, numbness, change in speech, confusion, seizures, incoordination. PSYCHIATRIC: No concerning psychosocial issues. 12 point review of systems is negative except for those stated above Patient History <Tima Peter DO - Last Filed: 05/01/22 06:27> Medical History (Updated 04/30/22 @ 07:38 by Bindu Hurst DO) Asthma Chronic fatigue Depression Fibromyalgia Hypothyroid Surgical History Status post cholecystectomy Family History Father Heart disease Mother Heart disease Social History marital status: household members: spouse Smoking Status: Never smoker alcohol intake: never Smoking Status: Never smoker alcohol intake frequency: 0-2 drinks per day Substance Use Type: does not use Exam <Tima Peter DO - Last Filed: 05/01/22 06:27> Narrative Exam Narrative: GENERAL: [62] year old patient appears stated age. Well-developed patient, in mild distress. HEAD: Atraumatic. Normocephalic. EYES: Pupils equal round and reactive. Extraocular motions intact. No scleral icterus. No injection or drainage. ENT: Nose without bleeding, purulent drainage. Throat without erythema, tonsillar hypertrophy or exudate. Airway patent. NECK: Trachea midline. Non tender CARDIOVASCULAR: Regular rate and rhythm without murmurs, gallops, or rubs. Right anterior chest pain to palpation, this is the pain that brought her in RESPIRATORY: Clear to auscultation. Breath sounds equal bilaterally. No wheezes, rales, or rhonchi. Deep breaths elicit the same pain GASTROINTESTINAL: Abdomen soft, non-tender, nondistended. EXTREMITIES: No edema or joint tenderness. BACK: Nontender without deformity or crepitance. No flank tenderness. NEURO: AOx3. SKIN: No rash or erythema of visible areas Initial Vital Signs Initial Vital Signs: Vital Signs Temperature 98.2 F 04/30/22 05:32 Pulse Rate 94 H 04/30/22 05:32 Respiratory Rate 21 04/30/22 05:32 Blood Pressure 188/93 H 04/30/22 05:32 Pulse Oximetry 95 04/30/22 05:32 Oxygen Delivery Method 04/30/22 05:32 <Bindu Hurst DO - Last Filed: 05/06/22 21:39> Initial Vital Signs Initial Vital Signs: Vital Signs Temperature 98.2 F 04/30/22 05:32 Pulse Rate 94 H 04/30/22 05:32 Respiratory Rate 21 04/30/22 05:32 Blood Pressure 188/93 H 04/30/22 05:32 Pulse Oximetry 95 04/30/22 05:32 Oxygen Delivery Method 04/30/22 05:32 Course <Tima Peter DO - Last Filed: 05/01/22 06:27> Orders Ordered: Discontinued Medications Sodium Chloride (Normal Saline 0.9%) 1,000 mls @ 125 mls/hr IV CONT RORO Last Infusion: 04/30/22 09:37 Dose: 125 mls/hr Documented By: Admin: 04/30/22 05:56 Dose: 125 mls/hr Documented By: CARMEN Ketorolac Tromethamine (Ketorolac 30 Mg/Ml Vial) 15 mg IV NOW ONE Stop: 04/30/22 05:33 Last Admin: 04/30/22 05:55 Dose: 15 mg Documented By: CARMEN Vital Signs Vital signs: Vital Signs - 8 hr 04/30/22 05:32 Temperature 98.2 F Pulse Rate 94 H Respiratory Rate 21 Blood Pressure 188/93 H Pulse Oximetry 95 Oxygen Delivery Method Room Air <Bindu Hurst DO - Last Filed: 05/06/22 21:39> Orders Ordered: Discontinued Medications Sodium Chloride (Normal Saline 0.9%) 1,000 mls @ 125 mls/hr IV CONT RORO Last Infusion: 04/30/22 09:37 Dose: 125 mls/hr Documented By: Admin: 04/30/22 05:56 Dose: 125 mls/hr Documented By: CARMEN Ketorolac Tromethamine (Ketorolac 30 Mg/Ml Vial) 15 mg IV NOW ONE Stop: 04/30/22 05:33 Last Admin: 04/30/22 05:55 Dose: 15 mg Documented By: CARMEN Vital Signs Vital signs: Vital Signs - 8 hr 04/30/22 05:32 Temperature 98.2 F Pulse Rate 94 H Respiratory Rate 21 Blood Pressure 188/93 H Pulse Oximetry 95 Oxygen Delivery Method Room Air MDM - Chest Pain <Tima Peter DO - Last Filed: 05/01/22 06:27> Lab Data Result diagrams: 04/30/22 05:35 04/30/22 05:35 Labs: Lab Results 04/30/22 04/30/22 04/30/22 Range/Units 05:35 05:35 05:35 WBC 4.3 L (4.5-11.0) X10^3/uL RBC 4.02 (4.0-5.2) X10^6/uL Hgb 10.9 L (12.0-16.0) g/dL Hct 32.9 L (36-46) % MCV 81.9 (80-100) fL MCH 27.3 (26-34) PG MCHC 33.3 (30-36) % RDW 15.0 H (11.6-14.8) % Plt Count 215 (150-400) X10^3/uL Neut % (Auto) 51.7 (50-75) % Lymph % (Auto) 29.3 (25-40) % [place] % (Auto) 9.7 (3-14) % Eos % (Auto) 6.5 H (2-4) % Baso % (Auto) 2.8 H (0-2) % Neut # (Auto) 2200 (2170-1685) /uL Lymph # (Auto) 1300 (9215-7962) /uL [place] # (Auto) 400 (0-900) /uL Eos # (Auto) 300 (0-450) /uL Baso # (Auto) 100 (0-100) /uL D-Dimer 373 H (<230) ng/mL Sodium 138 (137-145) mmol/L Potassium 3.1 L (3.4-5.1) mmol/L Chloride 105 (98-107) mmol/L Carbon Dioxide 26 (22-32) mmol/L BUN 7 (7-17) mg/dL Creatinine 0.83 (0.52-1.04) mg/dL Estimated GFR > 60 (>60) mL/min BUN/Creatinine Ratio 8.4 (6-22) Glucose 128 H (80-110) mg/dL Lactate (0.7-2.1) mmol/L Calcium 8.5 (8.4-10.2) mg/dL Magnesium (1.6-2.3) mg/dL Total Bilirubin 0.4 (0.2-1.3) mg/dL AST 51 H (14-36) IU/L ALT 34 (<35) IU/L Alkaline Phosphatase 75 (38-126) U/L Total Creatine Kinase (30-135) U/L CK-MB (CK-2) CK-MB (CK-2) Rel Index Troponin I (0.01-0.034) ng/mL C-Reactive Protein < 0.5 (<1.0) mg/dL NT-Pro-B Natriuret Pep (<125) pg/mL Total Protein 6.5 (6.3-8.2) g/dL Albumin 3.8 (3.5-5.0) g/dL Globulin 2.7 (1.7-4.1) g/dL Albumin/Globulin Ratio 1.4 (1.0-2.8) Procalcitonin 0.04 (<0.5) ng/mL SARS-CoV-2 (PCR) (Negative) 04/30/22 04/30/22 04/30/22 Range/Units 05:35 05:35 05:35 WBC (4.5-11.0) X10^3/uL RBC (4.0-5.2) X10^6/uL Hgb (12.0-16.0) g/dL Hct (36-46) % MCV (80-100) fL MCH (26-34) PG MCHC (30-36) % RDW (11.6-14.8) % Plt Count (150-400) X10^3/uL Neut % (Auto) (50-75) % Lymph % (Auto) (25-40) % [place] % (Auto) (3-14) % Eos % (Auto) (2-4) % Baso % (Auto) (0-2) % Neut # (Auto) (5199-1989) /uL Lymph # (Auto) (2883-2404) /uL [place] # (Auto) (0-900) /uL Eos # (Auto) (0-450) /uL Baso # (Auto) (0-100) /uL D-Dimer (<230) ng/mL Sodium (137-145) mmol/L Potassium (3.4-5.1) mmol/L Chloride (98-107) mmol/L Carbon Dioxide (22-32) mmol/L BUN (7-17) mg/dL Creatinine (0.52-1.04) mg/dL Estimated GFR (>60) mL/min BUN/Creatinine Ratio (6-22) Glucose (80-110) mg/dL Lactate 2.7 H (0.7-2.1) mmol/L Calcium (8.4-10.2) mg/dL Magnesium 1.6 (1.6-2.3) mg/dL Total Bilirubin (0.2-1.3) mg/dL AST (14-36) IU/L ALT (<35) IU/L Alkaline Phosphatase (38-126) U/L Total Creatine Kinase 66 (30-135) U/L CK-MB (CK-2) TNP CK-MB (CK-2) Rel Index TNP Troponin I < 0.012 (0.01-0.034) ng/mL C-Reactive Protein (<1.0) mg/dL NT-Pro-B Natriuret Pep 436 H (<125) pg/mL Total Protein (6.3-8.2) g/dL Albumin (3.5-5.0) g/dL Globulin (1.7-4.1) g/dL Albumin/Globulin Ratio (1.0-2.8) Procalcitonin (<0.5) ng/mL SARS-CoV-2 (PCR) (Negative) 04/30/22 04/30/22 04/30/22 Range/Units 05:40 09:00 09:00 WBC (4.5-11.0) X10^3/uL RBC (4.0-5.2) X10^6/uL Hgb (12.0-16.0) g/dL Hct (36-46) % MCV (80-100) fL MCH (26-34) PG MCHC (30-36) % RDW (11.6-14.8) % Plt Count (150-400) X10^3/uL Neut % (Auto) (50-75) % Lymph % (Auto) (25-40) % [place] % (Auto) (3-14) % Eos % (Auto) (2-4) % Baso % (Auto) (0-2) % Neut # (Auto) (0941-4964) /uL Lymph # (Auto) (9338-8275) /uL [place] # (Auto) (0-900) /uL Eos # (Auto) (0-450) /uL Baso # (Auto) (0-100) /uL D-Dimer (<230) ng/mL Sodium (137-145) mmol/L Potassium (3.4-5.1) mmol/L Chloride (98-107) mmol/L Carbon Dioxide (22-32) mmol/L BUN (7-17) mg/dL Creatinine (0.52-1.04) mg/dL Estimated GFR (>60) mL/min BUN/Creatinine Ratio (6-22) Glucose (80-110) mg/dL Lactate 0.9 (0.7-2.1) mmol/L Calcium (8.4-10.2) mg/dL Magnesium (1.6-2.3) mg/dL Total Bilirubin (0.2-1.3) mg/dL AST (14-36) IU/L ALT (<35) IU/L Alkaline Phosphatase (38-126) U/L Total Creatine Kinase (30-135) U/L CK-MB (CK-2) CK-MB (CK-2) Rel Index Troponin I < 0.012 (0.01-0.034) ng/mL C-Reactive Protein (<1.0) mg/dL NT-Pro-B Natriuret Pep (<125) pg/mL Total Protein (6.3-8.2) g/dL Albumin (3.5-5.0) g/dL Globulin (1.7-4.1) g/dL Albumin/Globulin Ratio (1.0-2.8) Procalcitonin (<0.5) ng/mL SARS-CoV-2 (PCR) Positive H (Negative) Urine Dip Bedside Urine Glucose Negative Bedside Urine Bilirubin - Negative Bedside Urine Ketone - Negative Urine Specific Coram 1.010 Bedside Urine Occult Blood - Negative Bedside Urine pH 6.0 Bedside Urine Protein - Negative Bedside Urine Urobilinogen - Negative Bedside Urine Nitrite - Negative Bedside Urine Leukocytes - Negative Esterase <Bindu Hurst, DO - Last Filed: 05/06/22 21:39> Lab Data Labs: Lab Results 04/30/22 04/30/22 04/30/22 Range/Units 05:35 05:35 05:35 WBC 4.3 L (4.5-11.0) X10^3/uL RBC 4.02 (4.0-5.2) X10^6/uL Hgb 10.9 L (12.0-16.0) g/dL Hct 32.9 L (36-46) % MCV 81.9 (80-100) fL MCH 27.3 (26-34) PG MCHC 33.3 (30-36) % RDW 15.0 H (11.6-14.8) % Plt Count 215 (150-400) X10^3/uL Neut % (Auto) 51.7 (50-75) % Lymph % (Auto) 29.3 (25-40) % [place] % (Auto) 9.7 (3-14) % Eos % (Auto) 6.5 H (2-4) % Baso % (Auto) 2.8 H (0-2) % Neut # (Auto) 2200 (7688-5741) /uL Lymph # (Auto) 1300 (7443-4734) /uL [place] # (Auto) 400 (0-900) /uL Eos # (Auto) 300 (0-450) /uL Baso # (Auto) 100 (0-100) /uL D-Dimer 373 H (<230) ng/mL Sodium 138 (137-145) mmol/L Potassium 3.1 L (3.4-5.1) mmol/L Chloride 105 (98-107) mmol/L Carbon Dioxide 26 (22-32) mmol/L BUN 7 (7-17) mg/dL Creatinine 0.83 (0.52-1.04) mg/dL Estimated GFR > 60 (>60) mL/min BUN/Creatinine Ratio 8.4 (6-22) Glucose 128 H (80-110) mg/dL Lactate (0.7-2.1) mmol/L Calcium 8.5 (8.4-10.2) mg/dL Magnesium (1.6-2.3) mg/dL Total Bilirubin 0.4 (0.2-1.3) mg/dL AST 51 H (14-36) IU/L ALT 34 (<35) IU/L Alkaline Phosphatase 75 (38-126) U/L Total Creatine Kinase (30-135) U/L CK-MB (CK-2) CK-MB (CK-2) Rel Index Troponin I (0.01-0.034) ng/mL C-Reactive Protein < 0.5 (<1.0) mg/dL NT-Pro-B Natriuret Pep (<125) pg/mL Total Protein 6.5 (6.3-8.2) g/dL Albumin 3.8 (3.5-5.0) g/dL Globulin 2.7 (1.7-4.1) g/dL Albumin/Globulin Ratio 1.4 (1.0-2.8) Procalcitonin 0.04 (<0.5) ng/mL SARS-CoV-2 (PCR) (Negative) 04/30/22 04/30/22 04/30/22 Range/Units 05:35 05:35 05:35 WBC (4.5-11.0) X10^3/uL RBC (4.0-5.2) X10^6/uL Hgb (12.0-16.0) g/dL Hct (36-46) % MCV (80-100) fL MCH (26-34) PG MCHC (30-36) % RDW (11.6-14.8) % Plt Count (150-400) X10^3/uL Neut % (Auto) (50-75) % Lymph % (Auto) (25-40) % [place] % (Auto) (3-14) % Eos % (Auto) (2-4) % Baso % (Auto) (0-2) % Neut # (Auto) (8345-8685) /uL Lymph # (Auto) (7125-8935) /uL [place] # (Auto) (0-900) /uL Eos # (Auto) (0-450) /uL Baso # (Auto) (0-100) /uL D-Dimer (<230) ng/mL Sodium (137-145) mmol/L Potassium (3.4-5.1) mmol/L Chloride (98-107) mmol/L Carbon Dioxide (22-32) mmol/L BUN (7-17) mg/dL Creatinine (0.52-1.04) mg/dL Estimated GFR (>60) mL/min BUN/Creatinine Ratio (6-22) Glucose (80-110) mg/dL Lactate 2.7 H (0.7-2.1) mmol/L Calcium (8.4-10.2) mg/dL Magnesium 1.6 (1.6-2.3) mg/dL Total Bilirubin (0.2-1.3) mg/dL AST (14-36) IU/L ALT (<35) IU/L Alkaline Phosphatase (38-126) U/L Total Creatine Kinase 66 (30-135) U/L CK-MB (CK-2) TNP CK-MB (CK-2) Rel Index TNP Troponin I < 0.012 (0.01-0.034) ng/mL C-Reactive Protein (<1.0) mg/dL NT-Pro-B Natriuret Pep 436 H (<125) pg/mL Total Protein (6.3-8.2) g/dL Albumin (3.5-5.0) g/dL Globulin (1.7-4.1) g/dL Albumin/Globulin Ratio (1.0-2.8) Procalcitonin (<0.5) ng/mL SARS-CoV-2 (PCR) (Negative) 07/29/22 07/29/22 07/29/22 Range/Units 05:40 09:00 09:00 WBC (4.5-11.0) X10^3/uL RBC (4.0-5.2) X10^6/uL Hgb (12.0-16.0) g/dL Hct (36-46) % MCV (80-100) fL MCH (26-34) PG MCHC (30-36) % RDW (11.6-14.8) % Plt Count (150-400) X10^3/uL Neut % (Auto) (50-75) % Lymph % (Auto) (25-40) % [place] % (Auto) (3-14) % Eos % (Auto) (2-4) % Baso % (Auto) (0-2) % Neut # (Auto) (2125-7269) /uL Lymph # (Auto) (5457-4015) /uL [place] # (Auto) (0-900) /uL Eos # (Auto) (0-450) /uL Baso # (Auto) (0-100) /uL D-Dimer (<230) ng/mL Sodium (137-145) mmol/L Potassium (3.4-5.1) mmol/L Chloride (98-107) mmol/L Carbon Dioxide (22-32) mmol/L BUN (7-17) mg/dL Creatinine (0.52-1.04) mg/dL Estimated GFR (>60) mL/min BUN/Creatinine Ratio (6-22) Glucose (80-110) mg/dL Lactate 0.9 (0.7-2.1) mmol/L Calcium (8.4-10.2) mg/dL Magnesium (1.6-2.3) mg/dL Total Bilirubin (0.2-1.3) mg/dL AST (14-36) IU/L ALT (<35) IU/L Alkaline Phosphatase (38-126) U/L Total Creatine Kinase (30-135) U/L CK-MB (CK-2) CK-MB (CK-2) Rel Index Troponin I < 0.012 (0.01-0.034) ng/mL C-Reactive Protein (<1.0) mg/dL NT-Pro-B Natriuret Pep (<125) pg/mL Total Protein (6.3-8.2) g/dL Albumin (3.5-5.0) g/dL Globulin (1.7-4.1) g/dL Albumin/Globulin Ratio (1.0-2.8) Procalcitonin (<0.5) ng/mL SARS-CoV-2 (PCR) Positive H (Negative) Urine Dip Bedside Urine Glucose Negative Bedside Urine Bilirubin - Negative Bedside Urine Ketone - Negative Urine Specific Coram 1.010 Bedside Urine Occult Blood - Negative Bedside Urine pH 6.0 Bedside Urine Protein - Negative Bedside Urine Urobilinogen - Negative Bedside Urine Nitrite - Negative Bedside Urine Leukocytes - Negative Esterase Imaging Data CT scan - chest: Radiologist's Impression: [address] [address] [address] Scan Report Signed Patient: Maine Avila MR#: [id number] : 1960 Acct:[id number] Age/Sex: 62 / F Date of Service: 04/30/22 Loc: ED Accession Number: [id number] ?? Procedure: CT angio chest PE protocol Ordering Provider: Tima Peter D.O. PROCEDURE:? CT ANGIO CHEST PE PROTOCOL ? INDICATIONS:? chest pain, cough, SOB, elevated Dimer ? TECHNIQUE:? After the administration of intravenous contrast, 2 mm thick sections acquired from the pulmonary apices to the posterior costophrenic angles.? 3-dimensional maximum intensity projection (MIP) coronal and sagittal reformats were then acquired through the thorax.? For radiation dose reduction, the following was used:? automated exposure control, adjustment of mA and/or kV according to patient size.? ? COMPARISON:? [facility], CT, CT ANGIO CHEST PE PROTOCOL, 09/19/2021, 0:11. ? FINDINGS:? Image quality:? Excellent.? ? Pulmonary arteries:? Pulmonary arteries are normal in size, and demonstrate no intraluminal filling defects to suggest central pulmonary embolism.? Evaluation the distal arteries is motion degraded. ? Lungs and pleura:? there is basal atelectasis.? Bronchial wall thickening and mucous plugging.? No pleural effusions.? No pneumothorax.? There are multiple small pulmonary nodules, a single nodule on image 5/32 in the right upper lobe is slightly more prominent. ? Mediastinum:? Heart size is normal, without pericardial effusion.? No mediastinal or hilar adenopathy.? Thoracic aorta is normal in caliber and enhancement.? Esophagus is normal in caliber, without hiatal hernia.? Coronary artery calcifications.? Increased size of some hilar lymph nodes compare to 09/19/2021. ? Bones and chest wall:? No suspicious bony lesions.? Ribs and thoracic spine appear intact throughout.? Thyroid gland within normal limits.? No axillary or supraclavicular adenopathy.? ? Abdomen:? Visualized upper abdominal solid organs appear normal in the early arterial phase of enhancement.? Cholecystectomy. ? IMPRESSION:? No pulmonary embolism.? Evaluation the distal arteries is degraded by motion. ? Suspected bronchitis.? Prominent hilar bilateral lymph nodes could be reactive in etiology.? Atelectasis at the bases, without airspace consolidation.? Small pulmonary nodules are present, a single nodule on image 5/32 in the right upper lobe is slightly more prominent and can be optionally followed with chest CT in 1 year.? ? ? Dictated by: Denny Lafleur M.D. on 04/30/2022 at 7:55 ? ? Approved by: Denny Lafleur M.D. on 04/30/2022 at 8:13?? ECG Data Attestation: I personally reviewed and interpreted this ECG as follows: Interpretation: Sinus rhythm rate of 77 HI 154 QRS 80 QTC 479. No acute ST changes appreciated. Patient has priors from 1221 which appears similar to today. [facility] Narrative Medical decision making narrative: This is a 62-year-old female who presents with complaint of chest pain, she was seen independently evaluated by myself after being signed out by Dr. Peter. Patient has positive COVID test, D-dimer was elevated so CT angio was ordered shows bronchitis type changes and possible pulmonary nodule with the recommended optional 1 year follow-up. Troponin was negative, lactate was elevated repeated it is negative and repeat troponin is negative as well with no acute EKG changes. Both of these with no other signs of cardiac cause, embolic or other issues. Patient does not wish to have PACs lobe, she is interested in a cough syrup with some codeine available she has multiple allergies but states she tolerates plan codeine cough syrup for codeine with Mucinex and it. Patient has been hypertensive overnight, no hypoxia. She denies any chest pain currently. Discharge Plan Departure Patient Disposition: Home Clinical Impression: COVID-19 virus infection, Chest pain Instructions: DI for COVID-19 (Suspected or Confirmed ) Activity Restrictions/Additional Instructions: Please follow-up for recheck in the next week. You can continue home medications as prescribed. Prescription for cough syrup with codeine was sent to [facility] in [place]. This medication can make you sleepy do not drive, perform hazardous activities or make any major decisions while taking it. This medication will make you constipated please take a stool softener once to twice daily until stools are soft and regular. *You have been diagnosed with COVID infection. If you wish you may obtain a pulse oximeter for use at home to monitor. Please return to the ER if your pulse oximeter shows an O2 saturation less than 90%. *What to do: * per recommendations from the CDC and the [facility] Department of Health * stay home except to get medical care. Restrict activities outside your home, except for getting medical care. Do not go to work, school, or public areas. Avoid using public transportation, ride sharing, or taxis. * separate yourself from other people in your home. * call ahead before visiting your doctor * Wear a face mask * Cover your coughs and sneezes * Clean your hands often * Avoid sharing household items * Clean all high-touch services every day * Monitor your symptoms and seek prompt medical attention if your illness is worsening, particularly with difficulty in breathing. Prescriptions: New codeine-guaifenesin 10-100 mg/5 mL liquid 10 ml PO Q6H PRN (Reason: cough) Qty: 120 0RF No Action mirtazapine 15 mg tablet 30 mg PO DAILY albuterol sulfate 90 mcg/actuation HFA aerosol inhaler 2 puff INHALATION Q6H PRN (Reason: Shortness Of Breath) omeprazole 20 mg capsule,delayed release(DR/EC) 40 mg PO DAILY diphenhydramine HCl [Benadryl] 25 mg capsule 75 mg PO BEDTIME prednisone 50 mg tablet 50 mg PO DAILY Qty: 5 0RF azithromycin 250 mg tablet See Rx Instructions .ROUTE .COMPLEX Qty: 6 0RF Rx Instructions: For 250 mg dose pack: take 500 mg today (day 1), then 250 mg for 4 days (days 2-5) levothyroxine 200 mcg Tablet 200 mcg PO DAILY gabapentin 100 mg Capsule 200 mg PO TID ondansetron 4 mg tablet,disintegrating 4 mg PO TID-QID PRN (Reason: nausea and vomiting) Qty: 10 0RF ciprofloxacin HCl [Cipro] 500 mg tablet 500 mg PO BID Qty: 14 0RF Referrals: Taylor Lassiter [Primary Care Provider] - Visit Report Forms: Patient Portal/API
--- NOTE | 2022-04-30 05:33 | DI.RAD.S_ITS ---
PROCEDURE: XR CHEST 1V INDICATIONS: cough, pleuritic chest pain TECHNIQUE: One view of the chest was acquired. COMPARISON: [facility], CR, XR CHEST 1V, 09/23/2021, 22:00. [facility], CR, XR CHEST 1V, 09/18/2021, 20:34. FINDINGS: Surgical changes and devices: None. Lungs and pleura: Lungs are clear. No pleural effusions or pneumothorax. Questionable peribronchial cuffing. Mediastinum: Mediastinal contours appear normal. Heart size is normal. Bones and chest wall: No suspicious bony lesions. Overlying soft tissues appear unremarkable. IMPRESSION: No acute cardiothoracic abnormality. Questionable radiographic signs of bronchitis. Agree with preliminary report. Dictated by: Denny Lafleur M.D. on 04/30/2022 at 8:46 Approved by: Denny Lafleur M.D. on 04/30/2022 at 8:47
[2022-04-30] MEDS: KETOROLAC 30 MG/ML VIAL 15 MG IV (05:55)
[2022-04-30] MEDS: SODIUM CHLORIDE 0.9% 1,000 ML 125 ML IV (05:56)
[2022-04-30 05:58] LABS: Add Manual Diff / Slide Review NO; Basophils Absolute Auto 100 /uL (0-100); Basophils Percent Auto 2.8 % (0-2); Eosinophils Absolute Auto 300 /uL (0-450); Eosinophils Percent Auto 6.5 % (2-4); Hematocrit 32.9 % (36-46); Hemoglobin 10.9 g/dL (12.0-16.0); Lymphocytes Absolute Auto 1300 /uL (1100-4500); Lymphocytes Percent Auto 29.3 % (25-40); Mean Corpuscular HGB Conc 33.3 % (30-36); Mean Corpuscular Hemoglobin 27.3 PG (26-34); Mean Corpuscular Volume 81.9 fL (80-100); Monocytes Absolute Auto 400 /uL (0-900); Monocytes Percent Auto 9.7 % (3-14); Neutrophils Absolute Auto 2200 /uL (1500-7000); Neutrophils Percent Auto 51.7 % (50-75); Platelet Count 215 X10^3/uL (150-400); Red Blood Cell Count 4.02 X10^6/uL (4.0-5.2); White Blood Cell Count 4.3 X10^3/uL (4.5-11.0)
[2022-04-30 06:00] VITALS: BP 149/80; PULSE 73; RESP 20; O2SAT 95
[2022-04-30 06:04] LABS: Lactate (Lactic Acid) 2.7 mmol/L (0.7-2.1)
[2022-04-30 06:39] LABS: D Dimer 373 ng/mL (<230)
[2022-04-30 06:42] LABS: Alanine Aminotransferase 34 IU/L (<35); Albumin 3.8 g/dL (3.5-5.0); Albumin Globulin Ratio 1.4 (1.0-2.8); Alkaline Phosphatase 75 U/L (38-126); Aspartate Aminotransferase 51 IU/L (14-36); BUN Creatinine Ratio 8.4 (6-22); Bilirubin Total 0.4 mg/dL (0.2-1.3); Blood Urea Nitrogen 7 mg/dL (7-17); C-Reactive Protein Quant < 0.5 mg/dL (<1.0); Calcium 8.5 mg/dL (8.4-10.2); Carbon Dioxide 26 mmol/L (22-32); Chloride 105 mmol/L (98-107); Estimated Glomerular Filt Rate > 60 mL/min (>60); Globulin 2.7 g/dL (1.7-4.1); Glucose 128 mg/dL (80-110); HEMOLYSIS < 15 (0-50); Potassium 3.1 mmol/L (3.4-5.1); Sodium 138 mmol/L (137-145); Total Protein 6.5 g/dL (6.3-8.2)
[2022-04-30 06:44] LABS: Magnesium 1.6 mg/dL (1.6-2.3)
[2022-04-30 06:52] LABS: NT-proBNP (BNP-Adult 18+) 436 pg/mL (<125)
[2022-04-30 06:56] LABS: Procalcitonin 0.04 ng/mL (<0.5)
[2022-04-30 07:00] VITALS: BP 183/85; PULSE 73; RESP 18; O2SAT 97
--- NOTE | 2022-04-30 07:44 | DI.CT.S_ITS ---
PROCEDURE: CT ANGIO CHEST PE PROTOCOL INDICATIONS: chest pain, cough, SOB, elevated Dimer TECHNIQUE: After the administration of intravenous contrast, 2 mm thick sections acquired from the pulmonary apices to the posterior costophrenic angles. 3-dimensional maximum intensity projection (MIP) coronal and sagittal reformats were then acquired through the thorax. For radiation dose reduction, the following was used: automated exposure control, adjustment of mA and/or kV according to patient size. COMPARISON: [facility], CT, CT ANGIO CHEST PE PROTOCOL, 09/19/2021, 0:11. FINDINGS: Image quality: Excellent. Pulmonary arteries: Pulmonary arteries are normal in size, and demonstrate no intraluminal filling defects to suggest central pulmonary embolism. Evaluation the distal arteries is motion degraded. Lungs and pleura: there is basal atelectasis. Bronchial wall thickening and mucous plugging. No pleural effusions. No pneumothorax. There are multiple small pulmonary nodules, a single nodule on image 5/32 in the right upper lobe is slightly more prominent. Mediastinum: Heart size is normal, without pericardial effusion. No mediastinal or hilar adenopathy. Thoracic aorta is normal in caliber and enhancement. Esophagus is normal in caliber, without hiatal hernia. Coronary artery calcifications. Increased size of some hilar lymph nodes compare to 09/19/2021. Bones and chest wall: No suspicious bony lesions. Ribs and thoracic spine appear intact throughout. Thyroid gland within normal limits. No axillary or supraclavicular adenopathy. Abdomen: Visualized upper abdominal solid organs appear normal in the early arterial phase of enhancement. Cholecystectomy. IMPRESSION: No pulmonary embolism. Evaluation the distal arteries is degraded by motion. Suspected bronchitis. Prominent hilar bilateral lymph nodes could be reactive in etiology. Atelectasis at the bases, without airspace consolidation. Small pulmonary nodules are present, a single nodule on image 5/32 in the right upper lobe is slightly more prominent and can be optionally followed with chest CT in 1 year. Dictated by: Denny Lafleur M.D. on 04/30/2022 at 7:55 Approved by: Denny Lafleur M.D. on 04/30/2022 at 8:13
[2022-04-30 07:54] LABS: Reflexed Lactate in 2 Hours Y
[2022-04-30 08:23] LABS: Creatine Kinase 66 U/L (30-135)
[2022-04-30 08:36] LABS: Troponin I < 0.012 ng/mL (0.01-0.034)
[2022-04-30 09:18] LABS: Lactate 2HR (Lactic Acid Rflx) 0.9 mmol/L (0.7-2.1)
[2022-04-30 09:30] VITALS: BP 164/76; PULSE 77; RESP 18; O2SAT 96
[2022-04-30 09:30] LABS: Troponin I < 0.012 ng/mL (0.01-0.034)
[2022-04-30 23:17] LABS: COVID19 -Nasal RAPID POSITIVE (Negative)
== END 2022-04-30 09:44 | disposition home or self-care (01) ==
PROVIDERS: Emergency Medicine; Emergency Provider Emergency Medicine; Family Provider Nurse Practitioner Family; PCP Family Medicine
DX: U07.1 COVID-19 (principal); R07.9 Chest pain, unspecified
CPT/HCPCS: 36415; 71045; 71275; 80053; 81003; 82550; 83605; 83735; 83880; 84145; 84484; 85025; 85379; 86140; 87040; 87635; 93005; 96361; 96374; 99284; C9803; J1885